=== PATIENT | female | born 1950 | race Caucasian/White ===

== ENCOUNTER 2023-05-15 11:36 | Inpatient (IN) | payer OTHER, BC ==
[2023-05-15 13:04] LABS: BASO % 0.1 % (0-2.0); HEMATOCRIT 32.7 % (32.4-45.2); HEMOGLOBIN 10.3 GM/dL (10.7-15.3); LYMPH % 3.9 % (8-40); MCH 31.2 pg (25.7-33.7); MCHC 31.4 g/dl (32.0-36.0); MEAN CELL VOLUME 99.4 fl (80-96); MEAN PLT VOLUME 9.5 fl (7.5-11.1); MONO % 7.6 % (3.8-10.2); NEUT % 88.4 % (42.8-82.8); PLATELET COUNT 430 10^3/uL (134-434); RBC 3.29 M/mm3 (3.60-5.2); RDW 15.3 % (11.6-15.6); WHITE BLOOD COUNT 12.5 K/mm3 (4.0-10.0)
[2023-05-15 13:05] LABS: EPI CELLS >36 /uL (0-25.1); HYALINE CASTS 8 /uL (0-3.1); PH,URINE 5.5 (5.0-8.0); URINE APPEARANCE CLOUDY; URINE BACTERIA 11 /uL (0-1359); URINE BILIRUBIN 1+ (NEGATIVE); URINE COLOR DK YELLOW; URINE GLUCOSE (UA) NEGATIVE (NEGATIVE); URINE KETONE NEGATIVE (NEGATIVE); URINE LEUK ESTERASE NEGATIVE (NEGATIVE); URINE NITRITE NEGATIVE (NEGATIVE); URINE PROTEIN 2+ (NEGATIVE); URINE RBC 7 /uL (0-23.9)
[2023-05-15 13:06] LABS: URINE WBC 62.2 /uL (0-25.8)
[2023-05-15 13:09] LABS: INR 1.88 (0.83-1.09); PROTHROMBIN TIME (PATIENT) 21.7 SEC (9.7-13.0)
[2023-05-15 13:12] LABS: ACTIVATED PTT 34.4 SECONDS (25.2-36.5)
[2023-05-15] MEDS ORDERED: CEFTRIAXONE 1,000 MG in DEXTROSE 5%-WATER - 50 ML IVPB ONE (13:21)
[2023-05-15 13:27] LABS: CHLORIDE 108 mmol/L (98-107); POTASSIUM 3.7 mmol/L (3.5-5.1); SODIUM 144 mmol/L (136-145)
[2023-05-15 13:29] LABS: CALCIUM 8.1 mg/dL (8.5-10.1)
[2023-05-15 13:30] LABS: ALBUMIN 1.9 g/dl (3.4-5.0); ANION GAP 9 mmol/L (4-13); BLOOD UREA NITROGEN 24.6 mg/dL (7-18); CO2 27 mmol/L (21-32); GLUCOSE,RANDOM 93 mg/dL (74-106)
[2023-05-15 13:32] LABS: ANISOCYTOSIS 0; MACROCYTOSIS 0
[2023-05-15 13:33] LABS: CREATININE 0.8 mg/dL (0.55-1.3); SGOT/AST 32 U/L (15-37); SGPT/ALT 15 U/L (13-61)
[2023-05-15] MEDS ORDERED: DEXAMETHASONE SOD PHOSPHATE 10 MG/1 ML VIAL IVPUSH ONE (13:33)
[2023-05-15] MEDS ORDERED: AZITHROMYCIN IVPB 500 MG in DEXTROSE 5%-WATER - 250 ML IVPB ONE (13:33)
[2023-05-15 13:34] LABS: BILIRUBIN,TOTAL 0.6 mg/dL (0.2-1)
[2023-05-15 13:35] LABS: TOT PROT 5.2 g/dl (6.4-8.2)
[2023-05-15 13:36] LABS: ALK PHOS 101 U/L (45-117)
[2023-05-15] MEDS ORDERED: CEFTRIAXONE 1 GM/50 ML BAG ONE (13:39)
[2023-05-15] MEDS ORDERED: DEXAMETHASONE SOD PHOSPHATE 10 MG/1 ML VIAL ONE (13:39)
[2023-05-15] MEDS ORDERED: AZITHROMYCIN IVPB 500 MG/250 ML BAG IVPB ONE (13:45)
[2023-05-15 14:34] LABS: ARTERIAL BLD GAS O2 SATURATION 99.7 % (95-98); ARTERIAL BLOOD GAS BASE EXCESS 0.6 mmol/L (-2-2); ARTERIAL BLOOD GAS PO2 299.8 mmHg (80-100); ARTERIAL BLOOD GAS pH 7.341 (7.350-7.450)
[2023-05-15 14:36] LABS: ALLENS TEST POSITIVE
[2023-05-15] MEDS ORDERED: REMDESIVIR 200 MG in SODIUM CHLORIDE 250 ML IVPB SCH (15:00)
[2023-05-15] MEDS ORDERED: REMDESIVIR 200 MG in SODIUM CHLORIDE 250 ML IVPB ONE (15:00)
[2023-05-15] MEDS: CHLORHEXIDINE GLUCONATE 4% CLEANSER FOR DECOLONIZATION TP SCH (21:27)
[2023-05-15] MEDS: MUPIROCIN 2% TOPICAL OINTMENT FOR DECOLONIZATION NS SCH (21:28)
[2023-05-15] MEDS ORDERED: SENNOSIDES 8.6MG TABLET (FP) PO SCH (22:00)
[2023-05-15] MEDS ORDERED: MONTELUKAST NA 10 MG TABLET PO SCH (22:00)
[2023-05-15] MEDS ORDERED: PATIENT'S OWN MEDICATION (NON-FORMULARY) (Sennosides [Senna] 8.6 MG Capsule) PO SCH (22:00)
[2023-05-15] MEDS ORDERED: URSODIOL 250 MG PO SCH (22:00)
[2023-05-15] MEDS ORDERED: ATORVASTATIN CA 40 MG TABLET (FP) PO SCH (22:00)
[2023-05-16] MEDS ORDERED: LEVOTHYROXINE NA 125 MCG TABLET (FP) PO SCH (07:00)
[2023-05-16 07:33] LABS: HEMATOCRIT 30.9 % (32.4-45.2); HEMOGLOBIN 10.2 GM/dL (10.7-15.3); MCH 32.8 pg (25.7-33.7); MCHC 32.9 g/dl (32.0-36.0); MEAN CELL VOLUME 99.6 fl (80-96); MEAN PLT VOLUME 9.3 fl (7.5-11.1); PLATELET COUNT 407 10^3/uL (134-434); RBC 3.11 M/mm3 (3.60-5.2); RDW 14.9 % (11.6-15.6); WHITE BLOOD COUNT 16.2 K/mm3 (4.0-10.0)
[2023-05-16 07:51] LABS: POTASSIUM 3.6 mmol/L (3.5-5.1)
[2023-05-16 07:56] LABS: CALCIUM 8.8 mg/dL (8.5-10.1); MAGNESIUM 1.9 mg/dL (1.8-2.4)
[2023-05-16 07:57] LABS: ALBUMIN 1.8 g/dl (3.4-5.0)
[2023-05-16 07:59] LABS: PHOSPHOROUS 2.7 mg/dL (2.5-4.9)
[2023-05-16 08:00] LABS: CREATININE 0.7 mg/dL (0.55-1.3)
[2023-05-16 08:01] LABS: TOT PROT 5.4 g/dl (6.4-8.2)
[2023-05-16 08:03] LABS: BILIRUBIN,TOTAL 0.5 mg/dL (0.2-1)
[2023-05-16 08:50] LABS: ARTERIAL BLD GAS O2 SATURATION 98.6 % (95-98); ARTERIAL BLOOD GAS BASE EXCESS 3.1 mmol/L (-2-2); ARTERIAL BLOOD GAS PO2 123.3 mmHg (80-100); ARTERIAL BLOOD GAS pH 7.448 (7.350-7.450)
[2023-05-16 09:26] LABS: ANISOCYTOSIS 1+; MACROCYTOSIS 1+
[2023-05-16] MEDS: MUPIROCIN 2% TOPICAL OINTMENT FOR DECOLONIZATION NS SCH ×2 (09:52→21:10)
[2023-05-16] MEDS: ENOXAPARIN NA (PORCINE) 40 MG/0.4 ML DISP.SYRIN SQ SCH (09:52)
[2023-05-16] MEDS: SENNOSIDES 8.8 MG/5 ML SYRUP PEG SCH ×2 (09:52→21:09)
[2023-05-16] MEDS ORDERED: PANTOPRAZOLE 40 MG TABLET PO SCH (10:00)
[2023-05-16] MEDS ORDERED: DEXAMETHASONE SOD PHOSPHATE 4 MG/1 ML VIAL IVPUSH SCH (10:00)
[2023-05-16] MEDS ORDERED: FLUoxetine HCL 20 MG CAPSULE PO SCH (10:00)
[2023-05-16] MEDS: DEXMEDETOMIDINE PREMIX 400 MCG/100 ML BAG IVPB SCH ×2 (10:26→22:22)
[2023-05-16] MEDS ORDERED: CEFTRIAXONE 1 GM in DEXTROSE 5%-WATER - 50 ML IVPB SCH (11:15)
[2023-05-16] MEDS ORDERED: BARICITINIB 2 MG TABLET GT SCH (11:15)
[2023-05-16] MEDS ORDERED: AZITHROMYCIN IVPB 500 MG in DEXTROSE 5%-WATER - 250 ML IVPB SCH (11:15)
[2023-05-16] MEDS: FLUoxetine HCL 20 MG/5 ML 120 BOTTLE PEG SCH (12:18)
[2023-05-16] MEDS: CEFTRIAXONE 1 GM in DEXTROSE 5%-WATER - 50 ML IVPB SCH (12:20)
[2023-05-16] MEDS: FAMOTIDINE 20 MG/2.5 ML ORAL LIQUID PEG SCH ×2 (12:43→22:23)
[2023-05-16] MEDS ORDERED: VANCOMYCIN/WATER 1250 MG 1,250 MG/250 ML BAG IVPB ONE (13:00)
[2023-05-16] MEDS ORDERED: DEXAMETHASONE SOD PHOSPHATE 4 MG/1 ML VIAL IVPUSH ONE (13:14)
[2023-05-16] MEDS: AZITHROMYCIN IVPB 500 MG/250 ML BAG IVPB SCH (13:19)
[2023-05-16] MEDS ORDERED: BARICITINIB 1 MG/10 ML LIQUID GT SCH (14:00)
[2023-05-16] MEDS: REMDESIVIR 100 MG in SODIUM CHLORIDE 270 ML IVPB SCH (16:40)
[2023-05-16] MEDS: MONTELUKAST NA 10 MG TABLET PEG SCH (21:09)
[2023-05-16] MEDS: ATORVASTATIN CA 40 MG TABLET (FP) PEG SCH (21:09)
[2023-05-16] MEDS: CHLORHEXIDINE GLUCONATE 4% CLEANSER FOR DECOLONIZATION TP SCH (21:10)
[2023-05-16] MEDS: ACETAMINOPHEN 650 MG/20.3 ML ORAL SOLUTION (CUPS) PEG PRN (22:24)
[2023-05-17] MEDS: LEVOTHYROXINE NA 125 MCG TABLET (FP) PEG SCH (06:56)
[2023-05-17 08:13] LABS: HEMATOCRIT 31.4 % (32.4-45.2); HEMOGLOBIN 10.4 GM/dL (10.7-15.3); MCH 32.7 pg (25.7-33.7); MEAN CELL VOLUME 99.2 fl (80-96); MEAN PLT VOLUME 9.6 fl (7.5-11.1); PLATELET COUNT 421 10^3/uL (134-434); RBC 3.17 M/mm3 (3.60-5.2); WHITE BLOOD COUNT 23.3 K/mm3 (4.0-10.0)
[2023-05-17 08:31] LABS: POTASSIUM 3.7 mmol/L (3.5-5.1)
[2023-05-17 08:38] LABS: CALCIUM 9.4 mg/dL (8.5-10.1)
[2023-05-17 08:40] LABS: BLOOD UREA NITROGEN 33.4 mg/dL (7-18); MAGNESIUM 2.3 mg/dL (1.8-2.4)
[2023-05-17 08:42] LABS: CREATININE 0.8 mg/dL (0.55-1.3)
[2023-05-17 08:43] LABS: BILIRUBIN,DIRECT 0.3 mg/dL (0.0-0.2); PHOSPHOROUS 2.5 mg/dL (2.5-4.9)
[2023-05-17 08:44] LABS: BILIRUBIN,TOTAL 0.6 mg/dL (0.2-1); TOT PROT 5.7 g/dl (6.4-8.2)
[2023-05-17] MEDS ORDERED: VANCOMYCIN/WATER FOR INJ (PEG) 1,000 MG/200 ML BAG IVPB SCH (10:00)
[2023-05-17] MEDS: CEFTRIAXONE 1 GM in DEXTROSE 5%-WATER - 50 ML IVPB SCH (10:11)
[2023-05-17] MEDS: DEXAMETHASONE SOD PHOSPHATE 4 MG/1 ML VIAL IVPUSH SCH (10:12)
[2023-05-17] MEDS: AZITHROMYCIN IVPB 500 MG/250 ML BAG IVPB SCH (10:13)
[2023-05-17] MEDS: ENOXAPARIN NA (PORCINE) 40 MG/0.4 ML DISP.SYRIN SQ SCH (10:13)
[2023-05-17] MEDS: FLUoxetine HCL 20 MG/5 ML 120 BOTTLE PEG SCH (10:20)
[2023-05-17] MEDS: FAMOTIDINE 20 MG/2.5 ML ORAL LIQUID PEG SCH ×2 (10:20→21:15)
[2023-05-17] MEDS: SENNOSIDES 8.8 MG/5 ML SYRUP PEG SCH ×2 (12:43→21:16)
[2023-05-17] MEDS: DEXMEDETOMIDINE PREMIX 400 MCG/100 ML BAG IVPB SCH (12:43)
[2023-05-17] MEDS ORDERED: BARICITINIB 1 MG/10 ML LIQUID GT SCH (14:00)
[2023-05-17] MEDS: REMDESIVIR 100 MG in SODIUM CHLORIDE 270 ML IVPB SCH (14:24)
[2023-05-17] MEDS: ATORVASTATIN CA 40 MG TABLET (FP) PEG SCH (21:16)
[2023-05-17] MEDS: MUPIROCIN 2% TOPICAL OINTMENT FOR DECOLONIZATION NS SCH (21:16)
[2023-05-17] MEDS: MONTELUKAST NA 10 MG TABLET PEG SCH (21:16)
[2023-05-17] MEDS: VANCOMYCIN/WATER 1250 MG 1,250 MG/250 ML BAG IVPB SCH (21:16)
[2023-05-17] MEDS: CHLORHEXIDINE GLUCONATE 4% CLEANSER FOR DECOLONIZATION TP SCH (21:16)
[2023-05-18] MEDS: DEXMEDETOMIDINE PREMIX 400 MCG/100 ML BAG IVPB SCH ×2 (06:02→21:59)
[2023-05-18] MEDS: LEVOTHYROXINE NA 125 MCG TABLET (FP) PEG SCH (06:02)
[2023-05-18 06:33] LABS: HEMATOCRIT 32.1 % (32.4-45.2); HEMOGLOBIN 10.6 GM/dL (10.7-15.3); MCH 32.8 pg (25.7-33.7); MEAN CELL VOLUME 99.4 fl (80-96); PLATELET COUNT 376 10^3/uL (134-434); RBC 3.23 M/mm3 (3.60-5.2); RDW 14.6 % (11.6-15.6); WHITE BLOOD COUNT 23.7 K/mm3 (4.0-10.0)
[2023-05-18 06:52] LABS: POTASSIUM 3.6 mmol/L (3.5-5.1)
[2023-05-18 06:53] LABS: CALCIUM 8.6 mg/dL (8.5-10.1)
[2023-05-18 06:55] LABS: ALBUMIN 1.8 g/dl (3.4-5.0); MAGNESIUM 2.1 mg/dL (1.8-2.4)
[2023-05-18 06:58] LABS: CREATININE 0.6 mg/dL (0.55-1.3); PHOSPHOROUS 2.5 mg/dL (2.5-4.9)
[2023-05-18 06:59] LABS: BILIRUBIN,TOTAL 0.4 mg/dL (0.2-1); TOT PROT 5.2 g/dl (6.4-8.2)
[2023-05-18] MEDS: MUPIROCIN 2% TOPICAL OINTMENT FOR DECOLONIZATION NS SCH ×3 (08:15→21:11)
[2023-05-18] MEDS: CEFTRIAXONE 1 GM in DEXTROSE 5%-WATER - 50 ML IVPB SCH (09:52)
[2023-05-18] MEDS: SENNOSIDES 8.8 MG/5 ML SYRUP PEG SCH ×2 (09:55→21:09)
[2023-05-18] MEDS: AMINO ACIDS/PROTEIN HYDROLYS 30 ML LIQUID.PKT GT SCH (09:55)
[2023-05-18] MEDS: ENOXAPARIN NA (PORCINE) 40 MG/0.4 ML DISP.SYRIN SQ SCH (09:56)
[2023-05-18] MEDS: QUEtiapine FUMARATE 25 MG TABLET PO SCH ×2 (09:57→21:10)
[2023-05-18] MEDS: DEXAMETHASONE SOD PHOSPHATE 4 MG/1 ML VIAL IVPUSH SCH ×2 (09:57→16:06)
[2023-05-18] MEDS: MULTIVIT-MINERALS ORAL LIQUID GT SCH (10:02)
[2023-05-18] MEDS: FLUoxetine HCL 20 MG/5 ML 120 BOTTLE PEG SCH (10:02)
[2023-05-18] MEDS: FAMOTIDINE 20 MG/2.5 ML ORAL LIQUID PEG SCH ×2 (10:03→21:32)
[2023-05-18] MEDS: VANCOMYCIN/WATER 1250 MG 1,250 MG/250 ML BAG IVPB SCH (11:34)
[2023-05-18] MEDS: AZITHROMYCIN IVPB 500 MG/250 ML BAG IVPB SCH (11:42)
[2023-05-18 13:10] VITALS: BMI 29.5
[2023-05-18] MEDS ORDERED: SODIUM CHLORIDE IVPB SCH (15:15)
[2023-05-18] MEDS ORDERED: DAPTOMYCIN IVPB SCH (15:15)
[2023-05-18] MEDS ORDERED: CEFTAROLINE FOSAMIL ACETATE 600 MG in DEXTROSE 5%-WATER - 100 ML IVPB SCH (16:00)
[2023-05-18] MEDS: REMDESIVIR 100 MG in SODIUM CHLORIDE 270 ML IVPB SCH (16:43)
[2023-05-18] MEDS: CEFTAROLINE FOSAMIL ACETATE 600 MG in DEXTROSE 5%-WATER - 250 ML IVPB SCH (18:50)
[2023-05-18] MEDS: MONTELUKAST NA 10 MG TABLET PEG SCH (21:09)
[2023-05-18] MEDS: CHLORHEXIDINE GLUCONATE 4% CLEANSER FOR DECOLONIZATION TP SCH (21:11)
[2023-05-19] MEDS: CEFTAROLINE FOSAMIL ACETATE 600 MG in DEXTROSE 5%-WATER - 250 ML IVPB SCH ×3 (02:35→18:38)
[2023-05-19] MEDS: LEVOTHYROXINE NA 125 MCG TABLET (FP) PEG SCH (06:18)
[2023-05-19 07:58] LABS: HEMATOCRIT 35.5 % (32.4-45.2); HEMOGLOBIN 11.6 GM/dL (10.7-15.3); MCH 31.8 pg (25.7-33.7); MCHC 32.7 g/dl (32.0-36.0); MEAN CELL VOLUME 97.2 fl (80-96); MEAN PLT VOLUME 10.4 fl (7.5-11.1); PLATELET COUNT 375 10^3/uL (134-434); RBC 3.66 M/mm3 (3.60-5.2); RDW 14.8 % (11.6-15.6); WHITE BLOOD COUNT 22.1 K/mm3 (4.0-10.0)
[2023-05-19 08:34] LABS: POTASSIUM 3.2 mmol/L (3.5-5.1)
[2023-05-19 08:36] LABS: CALCIUM 8.4 mg/dL (8.5-10.1)
[2023-05-19 08:37] LABS: ALBUMIN 1.9 g/dl (3.4-5.0); BLOOD UREA NITROGEN 20.8 mg/dL (7-18); MAGNESIUM 2.1 mg/dL (1.8-2.4)
[2023-05-19 08:40] LABS: CREATININE 0.5 mg/dL (0.55-1.3); PHOSPHOROUS 2.3 mg/dL (2.5-4.9)
[2023-05-19 08:42] LABS: BILIRUBIN,TOTAL 0.7 mg/dL (0.2-1); TOT PROT 5.5 g/dl (6.4-8.2)
[2023-05-19] MEDS ORDERED: POTASSIUM CHLORIDE ORAL LIQUID 20 MEQ/15 ML GT SCH (10:00)
[2023-05-19] MEDS: AMINO ACIDS/PROTEIN HYDROLYS 30 ML LIQUID.PKT GT SCH (10:00)
[2023-05-19] MEDS: SENNOSIDES 8.8 MG/5 ML SYRUP PEG SCH ×2 (10:00→21:59)
[2023-05-19] MEDS: MUPIROCIN 2% TOPICAL OINTMENT FOR DECOLONIZATION NS SCH ×2 (11:01→21:57)
[2023-05-19] MEDS: MULTIVIT-MINERALS ORAL LIQUID GT SCH (11:01)
[2023-05-19] MEDS: DEXMEDETOMIDINE PREMIX 400 MCG/100 ML BAG IVPB SCH (11:02)
[2023-05-19] MEDS: ENOXAPARIN NA (PORCINE) 40 MG/0.4 ML DISP.SYRIN SQ SCH (11:02)
[2023-05-19] MEDS: FLUoxetine HCL 20 MG/5 ML 120 BOTTLE PEG SCH (11:02)
[2023-05-19] MEDS: QUEtiapine FUMARATE 25 MG TABLET PO SCH ×2 (11:02→21:59)
[2023-05-19] MEDS: DEXAMETHASONE SOD PHOSPHATE 4 MG/1 ML VIAL IVPUSH SCH (11:02)
[2023-05-19] MEDS: FAMOTIDINE 20 MG/2.5 ML ORAL LIQUID PEG SCH ×2 (11:15→21:58)
[2023-05-19] MEDS: POTASSIUM CHLORIDE ORAL LIQUID 20 MEQ/15 ML GT SCH ×2 (13:55→21:59)
[2023-05-19] MEDS: DAPTOMYCIN IVPB SCH (16:55)
[2023-05-19] MEDS: REMDESIVIR 100 MG in SODIUM CHLORIDE 270 ML IVPB SCH (16:55)
[2023-05-19] MEDS: SODIUM CHLORIDE IVPB SCH (16:55)
[2023-05-19 21:28] LABS: POTASSIUM 3.5 mmol/L (3.5-5.1)
[2023-05-19 21:29] LABS: CALCIUM 8.6 mg/dL (8.5-10.1)
[2023-05-19 21:30] LABS: MAGNESIUM 2.1 mg/dL (1.8-2.4)
[2023-05-19 21:34] LABS: CREATININE 0.6 mg/dL (0.55-1.3); PHOSPHOROUS 2.5 mg/dL (2.5-4.9)
[2023-05-19] MEDS: CHLORHEXIDINE GLUCONATE 4% CLEANSER FOR DECOLONIZATION TP SCH (21:58)
[2023-05-19] MEDS: MONTELUKAST NA 10 MG TABLET PEG SCH (21:59)
[2023-05-19] MEDS ORDERED: KCL 10 MEQ IVPB 10 MEQ/100 ML INFUS.BAG IVPB SCH (22:00)
[2023-05-20] MEDS: CEFTAROLINE FOSAMIL ACETATE 600 MG in DEXTROSE 5%-WATER - 250 ML IVPB SCH ×3 (01:31→17:03)
[2023-05-20] MEDS: LEVOTHYROXINE NA 125 MCG TABLET (FP) PEG SCH (06:03)
[2023-05-20 08:17] LABS: HEMATOCRIT 33.7 % (32.4-45.2); HEMOGLOBIN 10.9 GM/dL (10.7-15.3); MCH 31.7 pg (25.7-33.7); MCHC 32.2 g/dl (32.0-36.0); MEAN CELL VOLUME 98.3 fl (80-96); MEAN PLT VOLUME 10.3 fl (7.5-11.1); PLATELET COUNT 376 10^3/uL (134-434); RBC 3.43 M/mm3 (3.60-5.2); RDW 14.8 % (11.6-15.6)
[2023-05-20 08:39] LABS: CALCIUM 8.2 mg/dL (8.5-10.1)
[2023-05-20 08:40] LABS: BLOOD UREA NITROGEN 26.1 mg/dL (7-18)
[2023-05-20 08:43] LABS: CREATININE 0.6 mg/dL (0.55-1.3); PHOSPHOROUS 2.1 mg/dL (2.5-4.9)
[2023-05-20 08:44] LABS: TOT PROT 5.3 g/dl (6.4-8.2)
[2023-05-20 08:45] LABS: BILIRUBIN,TOTAL 0.9 mg/dL (0.2-1)
[2023-05-20] MEDS ORDERED: NAPH,MB-DB/K PH,MBDB POWDER PACKET PO ONE ×2 (09:08→11:15)
[2023-05-20] MEDS: AMINO ACIDS/PROTEIN HYDROLYS 30 ML LIQUID.PKT GT SCH (09:24)
[2023-05-20] MEDS: ACETAMINOPHEN 650 MG/20.3 ML ORAL SOLUTION (CUPS) PEG PRN (09:31)
[2023-05-20] MEDS: ENOXAPARIN NA (PORCINE) 40 MG/0.4 ML DISP.SYRIN SQ SCH (09:31)
[2023-05-20] MEDS: FAMOTIDINE 20 MG/2.5 ML ORAL LIQUID PEG SCH ×2 (09:34→22:22)
[2023-05-20] MEDS: QUEtiapine FUMARATE 25 MG TABLET PO SCH ×2 (09:34→22:23)
[2023-05-20] MEDS: FLUoxetine HCL 20 MG/5 ML 120 BOTTLE PEG SCH (09:34)
[2023-05-20] MEDS: DEXAMETHASONE SOD PHOSPHATE 4 MG/1 ML VIAL IVPUSH SCH (09:34)
[2023-05-20] MEDS: MULTIVIT-MINERALS ORAL LIQUID GT SCH (09:35)
[2023-05-20] MEDS: MUPIROCIN 2% TOPICAL OINTMENT FOR DECOLONIZATION NS SCH (09:58)
[2023-05-20] MEDS: REMDESIVIR 100 MG in SODIUM CHLORIDE 250 ML IVPB SCH (14:00)
[2023-05-20] MEDS: SENNOSIDES 8.8 MG/5 ML SYRUP PEG SCH ×2 (15:45→22:22)
[2023-05-20] MEDS: SODIUM CHLORIDE IVPB SCH (17:03)
[2023-05-20] MEDS: DAPTOMYCIN IVPB SCH (17:03)
[2023-05-20] MEDS: MONTELUKAST NA 10 MG TABLET PEG SCH (22:22)
[2023-05-20] MEDS: CHLORHEXIDINE GLUCONATE 4% CLEANSER FOR DECOLONIZATION TP SCH (22:22)
[2023-05-21] MEDS: CEFTAROLINE FOSAMIL ACETATE 600 MG in DEXTROSE 5%-WATER - 250 ML IVPB SCH ×3 (01:13→17:23)
[2023-05-21] MEDS: LEVOTHYROXINE NA 125 MCG TABLET (FP) PEG SCH (06:01)
[2023-05-21 08:07] LABS: POTASSIUM 4.1 mmol/L (3.5-5.1)
[2023-05-21 08:09] LABS: CALCIUM 8.1 mg/dL (8.5-10.1)
[2023-05-21 08:10] LABS: ALBUMIN 1.9 g/dl (3.4-5.0); MAGNESIUM 1.9 mg/dL (1.8-2.4)
[2023-05-21 08:13] LABS: CREATININE 0.6 mg/dL (0.55-1.3); PHOSPHOROUS 1.9 mg/dL (2.5-4.9)
[2023-05-21 08:14] LABS: BILIRUBIN,TOTAL 0.8 mg/dL (0.2-1); TOT PROT 5.2 g/dl (6.4-8.2)
[2023-05-21 08:33] LABS: HEMATOCRIT 32.7 % (32.4-45.2); HEMOGLOBIN 10.6 GM/dL (10.7-15.3); MCH 32.4 pg (25.7-33.7); MCHC 32.5 g/dl (32.0-36.0); MEAN CELL VOLUME 99.9 fl (80-96); MEAN PLT VOLUME 10.4 fl (7.5-11.1); PLATELET COUNT 364 10^3/uL (134-434); RBC 3.27 M/mm3 (3.60-5.2); RDW 14.7 % (11.6-15.6)
[2023-05-21] MEDS ORDERED: NAPH,MB-DB/K PH,MBDB POWDER PACKET PO ONE (08:45)
[2023-05-21] MEDS: AMINO ACIDS/PROTEIN HYDROLYS 30 ML LIQUID.PKT GT SCH (08:47)
[2023-05-21 09:09] LABS: WHITE BLOOD COUNT 31.9 K/mm3 (4.0-10.0)
[2023-05-21] MEDS: REMDESIVIR 100 MG in SODIUM CHLORIDE 250 ML IVPB SCH (09:15)
[2023-05-21] MEDS: SENNOSIDES 8.8 MG/5 ML SYRUP PEG SCH ×2 (09:18→22:01)
[2023-05-21] MEDS: QUEtiapine FUMARATE 25 MG TABLET PO SCH ×2 (09:19→22:09)
[2023-05-21] MEDS: DEXAMETHASONE SOD PHOSPHATE 4 MG/1 ML VIAL IVPUSH SCH (09:19)
[2023-05-21] MEDS: MULTIVIT-MINERALS ORAL LIQUID GT SCH (09:20)
[2023-05-21] MEDS: FLUoxetine HCL 20 MG/5 ML 120 BOTTLE PEG SCH (09:20)
[2023-05-21] MEDS: ENOXAPARIN NA (PORCINE) 40 MG/0.4 ML DISP.SYRIN SQ SCH (09:21)
[2023-05-21] MEDS: FAMOTIDINE 20 MG/2.5 ML ORAL LIQUID PEG SCH ×2 (09:25→22:10)
[2023-05-21] MEDS ORDERED: COLLAGENASE CLOSTRIDIUM HIST. 30 GRAMS TUBE TP SCH (10:00)
[2023-05-21] MEDS: ACETAMINOPHEN 650 MG/20.3 ML ORAL SOLUTION (CUPS) PEG PRN (11:00)
[2023-05-21] MEDS ORDERED: DEXAMETHASONE SOD PHOSPHATE 4 MG/1 ML VIAL IVPUSH SCH (11:20)
[2023-05-21] MEDS: SODIUM CHLORIDE IVPB SCH (17:23)
[2023-05-21] MEDS: DAPTOMYCIN IVPB SCH (17:23)
[2023-05-21] MEDS: FUROSEMIDE 40 MG/4 ML INJECTABLE VIAL IVPUSH SCH (17:25)
[2023-05-21] MEDS: SUCRALFATE 1 GM TABLET (FP) PO SCH ×2 (18:26→22:09)
[2023-05-21] MEDS: CHLORHEXIDINE GLUCONATE 4% CLEANSER FOR DECOLONIZATION TP SCH (22:00)
[2023-05-21] MEDS: METOCLOPRAMIDE HCL 10 MG TABLET (FP) PO SCH (22:09)
[2023-05-21] MEDS: MONTELUKAST NA 10 MG TABLET PEG SCH (22:09)
[2023-05-22] MEDS: CEFTAROLINE FOSAMIL ACETATE 600 MG in DEXTROSE 5%-WATER - 250 ML IVPB SCH ×3 (01:49→18:16)
[2023-05-22] MEDS ORDERED: PATIENT'S OWN MEDICATION (NON-FORMULARY) (Ursodiol [Ursodiol] 250 MG) PO SCH (06:00)
[2023-05-22] MEDS: SUCRALFATE 1 GM TABLET (FP) PO SCH ×3 (06:08→22:01)
[2023-05-22] MEDS: LEVOTHYROXINE NA 125 MCG TABLET (FP) PEG SCH (06:08)
[2023-05-22] MEDS: FUROSEMIDE 40 MG/4 ML INJECTABLE VIAL IVPUSH SCH ×2 (06:09→15:57)
[2023-05-22] MEDS: METOCLOPRAMIDE HCL 10 MG TABLET (FP) PO SCH ×3 (06:09→22:02)
[2023-05-22 07:18] LABS: HEMATOCRIT 33.2 % (32.4-45.2); HEMOGLOBIN 10.9 GM/dL (10.7-15.3); MCH 32.3 pg (25.7-33.7); MCHC 32.7 g/dl (32.0-36.0); MEAN CELL VOLUME 98.7 fl (80-96); MEAN PLT VOLUME 10.4 fl (7.5-11.1); PLATELET COUNT 370 10^3/uL (134-434); RBC 3.37 M/mm3 (3.60-5.2); RDW 14.4 % (11.6-15.6)
[2023-05-22 07:33] LABS: WHITE BLOOD COUNT 33.2 K/mm3 (4.0-10.0)
[2023-05-22 07:41] LABS: POTASSIUM 4.2 mmol/L (3.5-5.1)
[2023-05-22 07:45] LABS: ALBUMIN 2.2 g/dl (3.4-5.0); BLOOD UREA NITROGEN 23.6 mg/dL (7-18); CALCIUM 8.3 mg/dL (8.5-10.1)
[2023-05-22 07:48] LABS: CREATININE 0.6 mg/dL (0.55-1.3)
[2023-05-22 07:50] LABS: BILIRUBIN,TOTAL 0.9 mg/dL (0.2-1); TOT PROT 5.8 g/dl (6.4-8.2)
[2023-05-22] MEDS: AMINO ACIDS/PROTEIN HYDROLYS 30 ML LIQUID.PKT GT SCH (08:06)
[2023-05-22] MEDS ORDERED: COLLAGENASE CLOSTRIDIUM HIST. 30 GRAMS TUBE TP SCH (10:00)
[2023-05-22] MEDS: SENNOSIDES 8.8 MG/5 ML SYRUP PEG SCH ×2 (11:03→22:02)
[2023-05-22] MEDS: DEXAMETHASONE SOD PHOSPHATE 4 MG/1 ML VIAL IVPUSH SCH (11:03)
[2023-05-22] MEDS: ENOXAPARIN NA (PORCINE) 40 MG/0.4 ML DISP.SYRIN SQ SCH (11:03)
[2023-05-22] MEDS: QUEtiapine FUMARATE 25 MG TABLET PEG SCH (11:04)
[2023-05-22] MEDS: FAMOTIDINE 20 MG/2.5 ML ORAL LIQUID PEG SCH ×2 (11:04→22:03)
[2023-05-22] MEDS: FLUoxetine HCL 20 MG/5 ML 120 BOTTLE PEG SCH (11:04)
[2023-05-22] MEDS: REMDESIVIR 100 MG in SODIUM CHLORIDE 250 ML IVPB SCH (11:05)
[2023-05-22] MEDS: MULTIVIT-MINERALS ORAL LIQUID GT SCH (11:06)
[2023-05-22] MEDS: DAPTOMYCIN IVPB SCH (18:16)
[2023-05-22] MEDS: SODIUM CHLORIDE IVPB SCH (18:16)
[2023-05-22] MEDS ORDERED: CHLORHEXIDINE GLUCONATE 4% CLEANSER FOR DECOLONIZATION TP SCH (22:00)
[2023-05-22] MEDS ORDERED: QUEtiapine FUMARATE 25 MG TABLET PEG SCH (22:00)
[2023-05-22] MEDS: MONTELUKAST NA 10 MG TABLET PEG SCH (22:02)
[2023-05-23] MEDS: CEFTAROLINE FOSAMIL ACETATE 600 MG in DEXTROSE 5%-WATER - 250 ML IVPB SCH ×3 (01:30→18:40)
[2023-05-23] MEDS: METOCLOPRAMIDE HCL 10 MG TABLET (FP) PO SCH ×3 (05:57→22:10)
[2023-05-23] MEDS: SUCRALFATE 1 GM TABLET (FP) PO SCH ×3 (05:59→22:10)
[2023-05-23] MEDS: FUROSEMIDE 40 MG/4 ML INJECTABLE VIAL IVPUSH SCH ×2 (05:59→13:20)
[2023-05-23] MEDS: LEVOTHYROXINE NA 125 MCG TABLET (FP) PEG SCH (06:00)
[2023-05-23 08:13] LABS: HEMATOCRIT 32.1 % (32.4-45.2); HEMOGLOBIN 10.4 GM/dL (10.7-15.3); MCH 31.8 pg (25.7-33.7); MCHC 32.4 g/dl (32.0-36.0); MEAN PLT VOLUME 10.2 fl (7.5-11.1); PLATELET COUNT 394 10^3/uL (134-434); RBC 3.27 M/mm3 (3.60-5.2); RDW 14.3 % (11.6-15.6); WHITE BLOOD COUNT 26.8 K/mm3 (4.0-10.0)
[2023-05-23 09:21] LABS: POTASSIUM 3.8 mmol/L (3.5-5.1)
[2023-05-23 09:28] LABS: ALBUMIN 2.2 g/dl (3.4-5.0); BLOOD UREA NITROGEN 28.1 mg/dL (7-18)
[2023-05-23 09:29] LABS: CALCIUM 8.4 mg/dL (8.5-10.1); TOT PROT 5.8 g/dl (6.4-8.2)
[2023-05-23 09:30] LABS: MAGNESIUM 2.1 mg/dL (1.8-2.4)
[2023-05-23 09:31] LABS: CREATININE 0.7 mg/dL (0.55-1.3); PHOSPHOROUS 3.2 mg/dL (2.5-4.9)
[2023-05-23 09:34] LABS: ANISOCYTOSIS 1+; MACROCYTOSIS 0; TARGET CELLS 1+
[2023-05-23] MEDS: SENNOSIDES 8.8 MG/5 ML SYRUP PEG SCH (09:59)
[2023-05-23] MEDS: AMINO ACIDS/PROTEIN HYDROLYS 30 ML LIQUID.PKT GT SCH (09:59)
[2023-05-23] MEDS: MULTIVIT-MINERALS ORAL LIQUID GT SCH (10:00)
[2023-05-23] MEDS: DEXAMETHASONE SOD PHOSPHATE 4 MG/1 ML VIAL IVPUSH SCH (10:00)
[2023-05-23] MEDS: ENOXAPARIN NA (PORCINE) 40 MG/0.4 ML DISP.SYRIN SQ SCH (10:01)
[2023-05-23] MEDS: FLUoxetine HCL 20 MG/5 ML 120 BOTTLE PEG SCH (10:02)
[2023-05-23] MEDS: FAMOTIDINE 20 MG/2.5 ML ORAL LIQUID PEG SCH ×2 (10:02→22:10)
[2023-05-23] MEDS: QUEtiapine FUMARATE 25 MG TABLET PEG SCH (10:05)
[2023-05-23] MEDS: REMDESIVIR 100 MG in SODIUM CHLORIDE 250 ML IVPB SCH (10:07)
[2023-05-23] MEDS: BACITRACIN ZINC 15 GM TUBE TOPICAL OINTMENT TP SCH (13:21)
[2023-05-23] MEDS ORDERED: SENNOSIDES 8.8 MG/5 ML SYRUP PEG PRN (13:49)
[2023-05-23] MEDS: DAPTOMYCIN IVPB SCH (16:47)
[2023-05-23] MEDS: SODIUM CHLORIDE IVPB SCH (16:47)
[2023-05-23] MEDS ORDERED: CODEINE SO4 30 MG TABLET PO PRN (18:36)
[2023-05-23] MEDS: ACETAMINOPHEN 650 MG/20.3 ML ORAL SOLUTION (CUPS) PEG PRN (18:43)
[2023-05-23] MEDS: BENZONATATE 200 MG CAPSULE PO SCH (22:09)
[2023-05-23] MEDS: MONTELUKAST NA 10 MG TABLET PEG SCH (22:09)
[2023-05-24] MEDS: CEFTAROLINE FOSAMIL ACETATE 600 MG in DEXTROSE 5%-WATER - 250 ML IVPB SCH ×3 (01:46→17:17)
[2023-05-24] MEDS: METOCLOPRAMIDE HCL 10 MG TABLET (FP) PO SCH ×3 (07:04→22:05)
[2023-05-24] MEDS: LEVOTHYROXINE NA 125 MCG TABLET (FP) PEG SCH (07:05)
[2023-05-24] MEDS: SUCRALFATE 1 GM TABLET (FP) PO SCH ×3 (07:05→22:04)
[2023-05-24] MEDS: AMINO ACIDS/PROTEIN HYDROLYS 30 ML LIQUID.PKT GT SCH (09:03)
[2023-05-24 09:10] LABS: HEMATOCRIT 32.4 % (32.4-45.2); HEMOGLOBIN 10.6 GM/dL (10.7-15.3); MCH 32.2 pg (25.7-33.7); MCHC 32.8 g/dl (32.0-36.0); MEAN CELL VOLUME 98.3 fl (80-96); MEAN PLT VOLUME 10.1 fl (7.5-11.1); PLATELET COUNT 441 10^3/uL (134-434); RDW 14.4 % (11.6-15.6); WHITE BLOOD COUNT 24.3 K/mm3 (4.0-10.0)
[2023-05-24 09:17] LABS: POTASSIUM 3.5 mmol/L (3.5-5.1)
[2023-05-24 09:19] LABS: CALCIUM 8.4 mg/dL (8.5-10.1)
[2023-05-24 09:20] LABS: MAGNESIUM 2.2 mg/dL (1.8-2.4)
[2023-05-24 09:22] LABS: ALBUMIN 2.3 g/dl (3.4-5.0); BLOOD UREA NITROGEN 31.3 mg/dL (7-18)
[2023-05-24 09:23] LABS: PHOSPHOROUS 2.6 mg/dL (2.5-4.9)
[2023-05-24 09:24] LABS: CREATININE 0.7 mg/dL (0.55-1.3); TOT PROT 5.9 g/dl (6.4-8.2)
[2023-05-24] MEDS: FUROSEMIDE 40 MG/4 ML INJECTABLE VIAL IVPUSH SCH (09:24)
[2023-05-24] MEDS: DEXAMETHASONE SOD PHOSPHATE 4 MG/1 ML VIAL IVPUSH SCH (09:24)
[2023-05-24 09:25] LABS: BILIRUBIN,TOTAL 0.7 mg/dL (0.2-1)
[2023-05-24] MEDS: ENOXAPARIN NA (PORCINE) 40 MG/0.4 ML DISP.SYRIN SQ SCH (09:25)
[2023-05-24] MEDS: ACETAMINOPHEN 650 MG/20.3 ML ORAL SOLUTION (CUPS) PEG PRN ×2 (09:25→15:07)
[2023-05-24] MEDS: MULTIVIT-MINERALS ORAL LIQUID GT SCH (09:26)
[2023-05-24] MEDS: BENZONATATE 200 MG CAPSULE PO SCH ×2 (09:26→22:03)
[2023-05-24] MEDS: FAMOTIDINE 20 MG/2.5 ML ORAL LIQUID PEG SCH ×2 (09:27→22:03)
[2023-05-24] MEDS: FLUoxetine HCL 20 MG/5 ML 120 BOTTLE PEG SCH (09:27)
[2023-05-24 09:52] LABS: ANISOCYTOSIS 1+; MACROCYTOSIS 0; TARGET CELLS 1+
[2023-05-24] MEDS: BACITRACIN ZINC 15 GM TUBE TOPICAL OINTMENT TP SCH (11:13)
[2023-05-24] MEDS: REMDESIVIR 100 MG in SODIUM CHLORIDE 250 ML IVPB SCH (11:36)
[2023-05-24] MEDS: DAPTOMYCIN IVPB SCH (18:03)
[2023-05-24] MEDS: SODIUM CHLORIDE IVPB SCH (18:03)
[2023-05-24] MEDS: ATORVASTATIN CA 40 MG TABLET (FP) PEG SCH (22:05)
[2023-05-24] MEDS: MONTELUKAST NA 10 MG TABLET PEG SCH (22:05)
[2023-05-25] MEDS: CEFTAROLINE FOSAMIL ACETATE 600 MG in DEXTROSE 5%-WATER - 250 ML IVPB SCH ×3 (01:28→17:43)
[2023-05-25] MEDS: METOCLOPRAMIDE HCL 10 MG TABLET (FP) PO SCH ×3 (06:30→21:18)
[2023-05-25] MEDS: SUCRALFATE 1 GM TABLET (FP) PO SCH ×3 (06:30→21:17)
[2023-05-25] MEDS: LEVOTHYROXINE NA 125 MCG TABLET (FP) PEG SCH (06:30)
[2023-05-25 08:12] LABS: HEMATOCRIT 31.8 % (32.4-45.2); MCH 31.3 pg (25.7-33.7); MCHC 31.5 g/dl (32.0-36.0); MEAN CELL VOLUME 99.1 fl (80-96); PLATELET COUNT 422 10^3/uL (134-434); RDW 14.6 % (11.6-15.6); WHITE BLOOD COUNT 25.9 K/mm3 (4.0-10.0)
[2023-05-25 08:32] LABS: POTASSIUM 3.5 mmol/L (3.5-5.1)
[2023-05-25 08:34] LABS: BLOOD UREA NITROGEN 31.8 mg/dL (7-18); CALCIUM 8.8 mg/dL (8.5-10.1)
[2023-05-25 08:35] LABS: ALBUMIN 2.4 g/dl (3.4-5.0); MAGNESIUM 2.2 mg/dL (1.8-2.4)
[2023-05-25 08:38] LABS: CREATININE 0.8 mg/dL (0.55-1.3); PHOSPHOROUS 2.9 mg/dL (2.5-4.9)
[2023-05-25 08:39] LABS: TOT PROT 5.7 g/dl (6.4-8.2)
[2023-05-25 08:52] LABS: BILIRUBIN,TOTAL 0.6 mg/dL (0.2-1)
[2023-05-25] MEDS: AMINO ACIDS/PROTEIN HYDROLYS 30 ML LIQUID.PKT GT SCH (09:42)
[2023-05-25 09:56] LABS: ANISOCYTOSIS 1+; MACROCYTOSIS 1+; OVALOCYTE 2+
[2023-05-25] MEDS ORDERED: ONDANSETRON *ODT* 4 MG TABLET SL ONE (10:15)
[2023-05-25] MEDS: FUROSEMIDE 40 MG/4 ML INJECTABLE VIAL IVPUSH SCH (10:42)
[2023-05-25] MEDS: ENOXAPARIN NA (PORCINE) 40 MG/0.4 ML DISP.SYRIN SQ SCH (10:42)
[2023-05-25] MEDS: BACITRACIN ZINC 15 GM TUBE TOPICAL OINTMENT TP SCH (10:42)
[2023-05-25] MEDS: BENZONATATE 200 MG CAPSULE PO SCH ×2 (10:43→21:17)
[2023-05-25] MEDS: MULTIVIT-MINERALS ORAL LIQUID GT SCH (10:44)
[2023-05-25] MEDS: FAMOTIDINE 20 MG/2.5 ML ORAL LIQUID PEG SCH ×2 (10:45→21:17)
[2023-05-25] MEDS: FLUoxetine HCL 20 MG/5 ML 120 BOTTLE PEG SCH (10:45)
[2023-05-25] MEDS: SODIUM CHLORIDE IVPB SCH (17:00)
[2023-05-25] MEDS: DAPTOMYCIN IVPB SCH (17:00)
[2023-05-25] MEDS: MONTELUKAST NA 10 MG TABLET PEG SCH (21:18)
[2023-05-25] MEDS: ATORVASTATIN CA 40 MG TABLET (FP) PEG SCH (21:19)
[2023-05-26] MEDS: CEFTAROLINE FOSAMIL ACETATE 600 MG in DEXTROSE 5%-WATER - 250 ML IVPB SCH ×3 (01:04→20:28)
[2023-05-26] MEDS: SUCRALFATE 1 GM TABLET (FP) PO SCH ×3 (05:50→21:19)
[2023-05-26] MEDS: METOCLOPRAMIDE HCL 10 MG TABLET (FP) PO SCH ×3 (05:50→21:18)
[2023-05-26] MEDS: LEVOTHYROXINE NA 125 MCG TABLET (FP) PEG SCH (06:05)
[2023-05-26 09:13] LABS: HEMATOCRIT 32.2 % (32.4-45.2); HEMOGLOBIN 10.2 GM/dL (10.7-15.3); MCH 30.9 pg (25.7-33.7); MCHC 31.6 g/dl (32.0-36.0); PLATELET COUNT 457 10^3/uL (134-434); RBC 3.29 M/mm3 (3.60-5.2); RDW 14.6 % (11.6-15.6); WHITE BLOOD COUNT 23.8 K/mm3 (4.0-10.0)
[2023-05-26 09:23] LABS: POTASSIUM 3.3 mmol/L (3.5-5.1)
[2023-05-26 09:28] LABS: ALBUMIN 2.6 g/dl (3.4-5.0); CALCIUM 9.2 mg/dL (8.5-10.1)
[2023-05-26 09:29] LABS: BLOOD UREA NITROGEN 30.4 mg/dL (7-18)
[2023-05-26 09:32] LABS: BILIRUBIN,TOTAL 1.1 mg/dL (0.2-1); CREATININE 0.8 mg/dL (0.55-1.3)
[2023-05-26] MEDS: AMINO ACIDS/PROTEIN HYDROLYS 30 ML LIQUID.PKT GT SCH (10:05)
[2023-05-26] MEDS: FUROSEMIDE 40 MG/4 ML INJECTABLE VIAL IVPUSH SCH (10:05)
[2023-05-26] MEDS: FAMOTIDINE 20 MG/2.5 ML ORAL LIQUID PEG SCH ×2 (10:10→21:17)
[2023-05-26] MEDS: ENOXAPARIN NA (PORCINE) 40 MG/0.4 ML DISP.SYRIN SQ SCH (10:10)
[2023-05-26] MEDS: FLUoxetine HCL 20 MG/5 ML 120 BOTTLE PEG SCH (10:11)
[2023-05-26] MEDS: BENZONATATE 100 MG CAPSULE PO SCH ×2 (10:12→21:17)
[2023-05-26] MEDS: MULTIVIT-MINERALS ORAL LIQUID GT SCH (10:15)
[2023-05-26 10:21] LABS: ANISOCYTOSIS 0; HELMET CELLS 0; HOWELL-JOLLY BODIES 0; MACROCYTOSIS 0; OVALOCYTE 0; ROULEAU 0; SICKELED CELLS 0; TARGET CELLS 0; TEAR DROP CELLS 0; TOXIC GRANULATION 0
[2023-05-26] MEDS: BACITRACIN ZINC 15 GM TUBE TOPICAL OINTMENT TP SCH (12:26)
[2023-05-26] MEDS: DAPTOMYCIN IVPB SCH (17:42)
[2023-05-26] MEDS: SODIUM CHLORIDE IVPB SCH (17:42)
[2023-05-26] MEDS: ACETAMINOPHEN 650 MG/20.3 ML ORAL SOLUTION (CUPS) PEG PRN (17:45)
[2023-05-26] MEDS: POTASSIUM CHLORIDE TABS 20 MEQ TABLET.ER (FP) PO SCH (21:16)
[2023-05-26] MEDS: ATORVASTATIN CA 40 MG TABLET (FP) PEG SCH (21:16)
[2023-05-26] MEDS: MONTELUKAST NA 10 MG TABLET PEG SCH (21:18)
[2023-05-27] MEDS: CEFTAROLINE FOSAMIL ACETATE 600 MG in DEXTROSE 5%-WATER - 250 ML IVPB SCH ×3 (01:09→17:17)
[2023-05-27] MEDS: SUCRALFATE 1 GM TABLET (FP) PO SCH (06:05)
[2023-05-27] MEDS: LEVOTHYROXINE NA 125 MCG TABLET (FP) PEG SCH (06:05)
[2023-05-27] MEDS: METOCLOPRAMIDE HCL 10 MG TABLET (FP) PO SCH ×3 (06:05→22:26)
[2023-05-27] MEDS: AMINO ACIDS/PROTEIN HYDROLYS 30 ML LIQUID.PKT GT SCH (08:28)
[2023-05-27] MEDS: POTASSIUM CHLORIDE TABS 20 MEQ TABLET.ER (FP) PO SCH ×2 (10:54→11:10)
[2023-05-27] MEDS: BACITRACIN ZINC 15 GM TUBE TOPICAL OINTMENT TP SCH (10:55)
[2023-05-27] MEDS: ENOXAPARIN NA (PORCINE) 40 MG/0.4 ML DISP.SYRIN SQ SCH (10:56)
[2023-05-27] MEDS: FUROSEMIDE 40 MG/4 ML INJECTABLE VIAL IVPUSH SCH (10:57)
[2023-05-27] MEDS: FLUoxetine HCL 20 MG/5 ML 120 BOTTLE PEG SCH (10:57)
[2023-05-27] MEDS: FAMOTIDINE 20 MG/2.5 ML ORAL LIQUID PEG SCH ×2 (10:58→22:27)
[2023-05-27] MEDS: MULTIVIT-MINERALS ORAL LIQUID GT SCH (10:58)
[2023-05-27] MEDS ORDERED: SUCRALFATE 1 GM/10 ML UNIT DOSE CUPS PO SCH (10:58)
[2023-05-27] MEDS: BENZONATATE 100 MG CAPSULE PO SCH ×2 (11:09→22:30)
[2023-05-27] MEDS: SUCRALFATE 1 GM/10 ML UNIT DOSE CUPS GT SCH ×2 (13:50→22:27)
[2023-05-27] MEDS: ACETAMINOPHEN 650 MG/20.3 ML ORAL SOLUTION (CUPS) PEG PRN (13:50)
[2023-05-27] MEDS: DAPTOMYCIN IVPB SCH (17:17)
[2023-05-27] MEDS: SODIUM CHLORIDE IVPB SCH (17:17)
[2023-05-27] MEDS: MONTELUKAST NA 10 MG TABLET PEG SCH (22:28)
[2023-05-27] MEDS: ATORVASTATIN CA 40 MG TABLET (FP) PEG SCH (22:28)
[2023-05-28] MEDS: CEFTAROLINE FOSAMIL ACETATE 600 MG in DEXTROSE 5%-WATER - 250 ML IVPB SCH ×3 (02:11→17:28)
[2023-05-28] MEDS: LEVOTHYROXINE NA 125 MCG TABLET (FP) PEG SCH (06:07)
[2023-05-28] MEDS: METOCLOPRAMIDE HCL 10 MG TABLET (FP) PO SCH ×3 (06:07→21:31)
[2023-05-28] MEDS: SUCRALFATE 1 GM/10 ML UNIT DOSE CUPS GT SCH ×3 (06:08→21:31)
[2023-05-28 08:01] LABS: HEMOGLOBIN 9.8 GM/dL (10.7-15.3); MCH 31.9 pg (25.7-33.7); MCHC 32.7 g/dl (32.0-36.0); MEAN CELL VOLUME 97.7 fl (80-96); MEAN PLT VOLUME 10.1 fl (7.5-11.1); PLATELET COUNT 450 10^3/uL (134-434); RBC 3.07 M/mm3 (3.60-5.2); WHITE BLOOD COUNT 18.3 K/mm3 (4.0-10.0)
[2023-05-28] MEDS: AMINO ACIDS/PROTEIN HYDROLYS 30 ML LIQUID.PKT GT SCH (08:01)
[2023-05-28 08:37] LABS: POTASSIUM 3.6 mmol/L (3.5-5.1)
[2023-05-28 08:43] LABS: CALCIUM 9.5 mg/dL (8.5-10.1)
[2023-05-28 08:44] LABS: ALBUMIN 2.4 g/dl (3.4-5.0); BLOOD UREA NITROGEN 27.2 mg/dL (7-18); MAGNESIUM 2.1 mg/dL (1.8-2.4)
[2023-05-28 08:47] LABS: PHOSPHOROUS 2.4 mg/dL (2.5-4.9)
[2023-05-28 08:48] LABS: BILIRUBIN,TOTAL 0.5 mg/dL (0.2-1)
[2023-05-28 08:49] LABS: TOT PROT 5.7 g/dl (6.4-8.2)
[2023-05-28] MEDS: FUROSEMIDE 40 MG/4 ML INJECTABLE VIAL IVPUSH SCH (10:17)
[2023-05-28] MEDS: MULTIVIT-MINERALS ORAL LIQUID GT SCH (10:17)
[2023-05-28] MEDS: ENOXAPARIN NA (PORCINE) 40 MG/0.4 ML DISP.SYRIN SQ SCH (10:17)
[2023-05-28] MEDS: FLUoxetine HCL 20 MG/5 ML 120 BOTTLE PEG SCH (10:18)
[2023-05-28] MEDS: FAMOTIDINE 20 MG/2.5 ML ORAL LIQUID PEG SCH ×2 (10:18→21:31)
[2023-05-28] MEDS: BENZONATATE 100 MG CAPSULE PO SCH ×2 (10:19→21:32)
[2023-05-28] MEDS: BACITRACIN ZINC 15 GM TUBE TOPICAL OINTMENT TP SCH (10:21)
[2023-05-28 11:13] LABS: ANISOCYTOSIS 1+; MACROCYTOSIS 0; ROULEAU 1+; TARGET CELLS 2+
[2023-05-28] MEDS: ACETAMINOPHEN 650 MG/20.3 ML ORAL SOLUTION (CUPS) PEG PRN ×2 (13:20→21:32)
[2023-05-28] MEDS: SODIUM CHLORIDE IVPB SCH (17:21)
[2023-05-28] MEDS: DAPTOMYCIN IVPB SCH (17:21)
[2023-05-28] MEDS: MONTELUKAST NA 10 MG TABLET PEG SCH (21:31)
[2023-05-28] MEDS: ATORVASTATIN CA 40 MG TABLET (FP) PEG SCH (21:31)
[2023-05-29] MEDS: CEFTAROLINE FOSAMIL ACETATE 600 MG in DEXTROSE 5%-WATER - 250 ML IVPB SCH ×3 (01:57→18:03)
[2023-05-29] MEDS: SUCRALFATE 1 GM/10 ML UNIT DOSE CUPS GT SCH ×3 (06:19→22:37)
[2023-05-29] MEDS: METOCLOPRAMIDE HCL 10 MG TABLET (FP) PO SCH ×3 (06:19→22:36)
[2023-05-29] MEDS: LEVOTHYROXINE NA 125 MCG TABLET (FP) PEG SCH (06:19)
[2023-05-29 09:43] LABS: BASO % 0.6 % (0-2.0); EOS % 0.7 % (0-4.5); HEMOGLOBIN 9.4 GM/dL (10.7-15.3); MCH 31.6 pg (25.7-33.7); MCHC 32.6 g/dl (32.0-36.0); MEAN CELL VOLUME 97.2 fl (80-96); MONO % 9.8 % (3.8-10.2); NEUT % 80.9 % (42.8-82.8); PLATELET COUNT 437 10^3/uL (134-434); RBC 2.98 M/mm3 (3.60-5.2); RDW 15.3 % (11.6-15.6); WHITE BLOOD COUNT 15.3 K/mm3 (4.0-10.0)
[2023-05-29] MEDS: AMINO ACIDS/PROTEIN HYDROLYS 30 ML LIQUID.PKT GT SCH (09:52)
[2023-05-29 10:10] LABS: CHLORIDE 96 mmol/L (98-107); SODIUM 135 mmol/L (136-145)
[2023-05-29 10:16] LABS: CALCIUM 8.8 mg/dL (8.5-10.1); CO2 32 mmol/L (21-32); GLUCOSE,RANDOM 73 mg/dL (74-106)
[2023-05-29 10:17] LABS: ALBUMIN 2.3 g/dl (3.4-5.0); BLOOD UREA NITROGEN 29.2 mg/dL (7-18); MAGNESIUM 2.2 mg/dL (1.8-2.4)
[2023-05-29 10:19] LABS: SGOT/AST 22 U/L (15-37); SGPT/ALT 22 U/L (13-61)
[2023-05-29 10:21] LABS: TOT PROT 5.4 g/dl (6.4-8.2)
[2023-05-29 10:22] LABS: ALK PHOS 101 U/L (45-117)
[2023-05-29 10:23] LABS: ANION GAP 7 mmol/L (4-13); POTASSIUM 2.9 mmol/L (3.5-5.1)
[2023-05-29] MEDS: BACITRACIN ZINC 15 GM TUBE TOPICAL OINTMENT TP SCH (10:52)
[2023-05-29] MEDS: FLUoxetine HCL 20 MG/5 ML 120 BOTTLE PEG SCH (10:53)
[2023-05-29] MEDS: FUROSEMIDE 40 MG/4 ML INJECTABLE VIAL IVPUSH SCH (10:53)
[2023-05-29] MEDS: MULTIVIT-MINERALS ORAL LIQUID GT SCH (10:53)
[2023-05-29] MEDS: BENZONATATE 100 MG CAPSULE PO SCH ×2 (10:54→22:38)
[2023-05-29] MEDS: FAMOTIDINE 20 MG/2.5 ML ORAL LIQUID PEG SCH ×2 (10:54→22:38)
[2023-05-29] MEDS: POTASSIUM CHLORIDE TABS 20 MEQ TABLET.ER (FP) PO SCH ×2 (10:56→13:22)
[2023-05-29] MEDS: KCL 10 MEQ IVPB 10 MEQ/100 ML INFUS.BAG IVPB SCH ×3 (10:56→14:30)
[2023-05-29] MEDS: ACETAMINOPHEN 650 MG/20.3 ML ORAL SOLUTION (CUPS) PEG PRN ×2 (11:16→17:04)
[2023-05-29] MEDS: POTASSIUM CHLORIDE ORAL LIQUID 20 MEQ/15 ML GT SCH ×2 (13:07→22:37)
[2023-05-29] MEDS: DAPTOMYCIN IVPB SCH (17:04)
[2023-05-29] MEDS: SODIUM CHLORIDE IVPB SCH (17:04)
[2023-05-29 17:32] LABS: BLOOD UREA NITROGEN 29.5 mg/dL (7-18)
[2023-05-29 17:35] LABS: CREATININE 1.1 mg/dL (0.55-1.3)
[2023-05-29] MEDS: MONTELUKAST NA 10 MG TABLET PEG SCH (22:36)
[2023-05-29] MEDS: ATORVASTATIN CA 40 MG TABLET (FP) PEG SCH (22:37)
[2023-05-30] MEDS: CEFTAROLINE FOSAMIL ACETATE 600 MG in DEXTROSE 5%-WATER - 250 ML IVPB SCH ×3 (01:55→19:07)
[2023-05-30] MEDS: METOCLOPRAMIDE HCL 10 MG TABLET (FP) PO SCH ×3 (05:29→22:24)
[2023-05-30] MEDS: SUCRALFATE 1 GM/10 ML UNIT DOSE CUPS GT SCH ×3 (05:29→22:20)
[2023-05-30] MEDS: LEVOTHYROXINE NA 125 MCG TABLET (FP) PEG SCH (06:14)
[2023-05-30 07:18] LABS: BASO % 0.9 % (0-2.0); EOS % 0.7 % (0-4.5); HEMATOCRIT 29.5 % (32.4-45.2); HEMOGLOBIN 9.6 GM/dL (10.7-15.3); LYMPH % 6.7 % (8-40); MCH 31.7 pg (25.7-33.7); MCHC 32.5 g/dl (32.0-36.0); MEAN CELL VOLUME 97.6 fl (80-96); MEAN PLT VOLUME 9.9 fl (7.5-11.1); MONO % 7.6 % (3.8-10.2); NEUT % 84.1 % (42.8-82.8); PLATELET COUNT 453 10^3/uL (134-434); RBC 3.02 M/mm3 (3.60-5.2); RDW 15.3 % (11.6-15.6)
[2023-05-30 07:54] LABS: ALBUMIN 2.4 g/dl (3.4-5.0); BLOOD UREA NITROGEN 27.2 mg/dL (7-18); MAGNESIUM 2.1 mg/dL (1.8-2.4)
[2023-05-30 07:57] LABS: PHOSPHOROUS 2.6 mg/dL (2.5-4.9)
[2023-05-30 07:58] LABS: BILIRUBIN,TOTAL 0.5 mg/dL (0.2-1); TOT PROT 5.5 g/dl (6.4-8.2)
[2023-05-30] MEDS: AMINO ACIDS/PROTEIN HYDROLYS 30 ML LIQUID.PKT GT SCH (10:02)
[2023-05-30] MEDS: BACITRACIN ZINC 15 GM TUBE TOPICAL OINTMENT TP SCH (10:02)
[2023-05-30] MEDS: FAMOTIDINE 20 MG/2.5 ML ORAL LIQUID PEG SCH ×2 (10:02→22:20)
[2023-05-30] MEDS: FLUoxetine HCL 20 MG/5 ML 120 BOTTLE PEG SCH (10:03)
[2023-05-30] MEDS: FUROSEMIDE 40 MG/4 ML INJECTABLE VIAL IVPUSH SCH (10:05)
[2023-05-30] MEDS: BENZONATATE 100 MG CAPSULE PO SCH ×3 (10:05→22:20)
[2023-05-30] MEDS: MULTIVIT-MINERALS ORAL LIQUID GT SCH (10:23)
[2023-05-30] MEDS: ACETAMINOPHEN 650 MG/20.3 ML ORAL SOLUTION (CUPS) PEG PRN ×2 (11:19→17:49)
[2023-05-30] MEDS: SODIUM CHLORIDE IVPB SCH (17:14)
[2023-05-30] MEDS: DAPTOMYCIN IVPB SCH (17:14)
[2023-05-30] MEDS: MONTELUKAST NA 10 MG TABLET PEG SCH (22:21)
[2023-05-30] MEDS: ATORVASTATIN CA 40 MG TABLET (FP) PEG SCH (22:21)
[2023-05-31] MEDS: CEFTAROLINE FOSAMIL ACETATE 600 MG in DEXTROSE 5%-WATER - 250 ML IVPB SCH ×3 (02:34→17:48)
[2023-05-31] MEDS: SUCRALFATE 1 GM/10 ML UNIT DOSE CUPS GT SCH ×3 (06:37→21:36)
[2023-05-31] MEDS: METOCLOPRAMIDE HCL 10 MG TABLET (FP) PO SCH ×3 (06:37→21:36)
[2023-05-31] MEDS: LEVOTHYROXINE NA 125 MCG TABLET (FP) PEG SCH (06:37)
[2023-05-31] MEDS: AMINO ACIDS/PROTEIN HYDROLYS 30 ML LIQUID.PKT GT SCH (09:43)
[2023-05-31] MEDS: BACITRACIN ZINC 15 GM TUBE TOPICAL OINTMENT TP SCH (09:43)
[2023-05-31] MEDS: FUROSEMIDE 40 MG/4 ML INJECTABLE VIAL IVPUSH SCH (09:44)
[2023-05-31] MEDS: MULTIVIT-MINERALS ORAL LIQUID GT SCH (09:44)
[2023-05-31] MEDS: ENOXAPARIN NA (PORCINE) 40 MG/0.4 ML DISP.SYRIN SQ SCH (09:44)
[2023-05-31] MEDS: FAMOTIDINE 20 MG/2.5 ML ORAL LIQUID PEG SCH ×2 (09:45→21:36)
[2023-05-31] MEDS: BENZONATATE 100 MG CAPSULE PO SCH ×2 (09:45→21:37)
[2023-05-31] MEDS: FLUoxetine HCL 20 MG/5 ML 120 BOTTLE PEG SCH (10:38)
[2023-05-31] MEDS: ACETAMINOPHEN 650 MG/20.3 ML ORAL SOLUTION (CUPS) PEG PRN (15:15)
[2023-05-31] MEDS: DAPTOMYCIN IVPB SCH (17:10)
[2023-05-31] MEDS: SODIUM CHLORIDE IVPB SCH (17:10)
[2023-05-31] MEDS: ATORVASTATIN CA 40 MG TABLET (FP) PEG SCH (21:36)
[2023-05-31] MEDS: MONTELUKAST NA 10 MG TABLET PEG SCH (21:36)
[2023-06-01] MEDS: CEFTAROLINE FOSAMIL ACETATE 600 MG in DEXTROSE 5%-WATER - 250 ML IVPB SCH ×3 (01:28→17:49)
[2023-06-01] MEDS: SUCRALFATE 1 GM/10 ML UNIT DOSE CUPS GT SCH ×3 (06:23→21:55)
[2023-06-01] MEDS: METOCLOPRAMIDE HCL 10 MG TABLET (FP) PO SCH ×3 (06:23→21:56)
[2023-06-01] MEDS: LEVOTHYROXINE NA 125 MCG TABLET (FP) PEG SCH (06:24)
[2023-06-01 08:23] LABS: EOS % 1.3 % (0-4.5); HEMATOCRIT 30.1 % (32.4-45.2); HEMOGLOBIN 9.7 GM/dL (10.7-15.3); LYMPH % 7.9 % (8-40); MCHC 32.2 g/dl (32.0-36.0); MEAN CELL VOLUME 99.3 fl (80-96); MEAN PLT VOLUME 9.8 fl (7.5-11.1); MONO % 5.9 % (3.8-10.2); NEUT % 83.9 % (42.8-82.8); PLATELET COUNT 416 10^3/uL (134-434); RBC 3.03 M/mm3 (3.60-5.2); RDW 15.4 % (11.6-15.6); WHITE BLOOD COUNT 13.3 K/mm3 (4.0-10.0)
[2023-06-01 08:40] LABS: POTASSIUM 3.4 mmol/L (3.5-5.1)
[2023-06-01 08:52] LABS: ALBUMIN 2.5 g/dl (3.4-5.0); CALCIUM 9.2 mg/dL (8.5-10.1)
[2023-06-01 08:53] LABS: BLOOD UREA NITROGEN 31.4 mg/dL (7-18)
[2023-06-01 08:55] LABS: CREATININE 0.9 mg/dL (0.55-1.3)
[2023-06-01 08:56] LABS: BILIRUBIN,TOTAL 0.4 mg/dL (0.2-1); TOT PROT 5.8 g/dl (6.4-8.2)
[2023-06-01] MEDS: FUROSEMIDE 40 MG/4 ML INJECTABLE VIAL IVPUSH SCH (09:08)
[2023-06-01] MEDS: ENOXAPARIN NA (PORCINE) 40 MG/0.4 ML DISP.SYRIN SQ SCH (09:08)
[2023-06-01] MEDS: MULTIVIT-MINERALS ORAL LIQUID GT SCH (09:09)
[2023-06-01] MEDS: FAMOTIDINE 20 MG/2.5 ML ORAL LIQUID PEG SCH ×2 (09:09→21:55)
[2023-06-01] MEDS: AMINO ACIDS/PROTEIN HYDROLYS 30 ML LIQUID.PKT GT SCH (09:09)
[2023-06-01] MEDS: BACITRACIN ZINC 15 GM TUBE TOPICAL OINTMENT TP SCH (09:09)
[2023-06-01] MEDS: BENZONATATE 100 MG CAPSULE PO SCH ×2 (09:12→22:00)
[2023-06-01] MEDS: ACETAMINOPHEN 650 MG/20.3 ML ORAL SOLUTION (CUPS) PEG PRN ×2 (10:07→16:57)
[2023-06-01] MEDS: FLUoxetine HCL 20 MG/5 ML 120 BOTTLE PEG SCH (10:27)
[2023-06-01] MEDS ORDERED: POTASSIUM CHLORIDE ORAL LIQUID 20 MEQ/15 ML PO ONE (10:37)
[2023-06-01] MEDS: SODIUM CHLORIDE IVPB SCH (16:57)
[2023-06-01] MEDS: DAPTOMYCIN IVPB SCH (16:57)
[2023-06-01] MEDS: ATORVASTATIN CA 40 MG TABLET (FP) PEG SCH (21:56)
[2023-06-01] MEDS: MONTELUKAST NA 10 MG TABLET PEG SCH (22:01)
[2023-06-02] MEDS: CEFTAROLINE FOSAMIL ACETATE 600 MG in DEXTROSE 5%-WATER - 250 ML IVPB SCH ×3 (02:25→17:16)
[2023-06-02] MEDS: METOCLOPRAMIDE HCL 10 MG TABLET (FP) PO SCH ×3 (05:55→21:42)
[2023-06-02] MEDS: SUCRALFATE 1 GM/10 ML UNIT DOSE CUPS GT SCH ×3 (05:56→21:41)
[2023-06-02] MEDS: LEVOTHYROXINE NA 125 MCG TABLET (FP) PEG SCH (06:04)
[2023-06-02 07:36] LABS: BASO % 1.1 % (0-2.0); EOS % 1.6 % (0-4.5); HEMATOCRIT 29.7 % (32.4-45.2); HEMOGLOBIN 9.7 GM/dL (10.7-15.3); LYMPH % 5.7 % (8-40); MCH 32.4 pg (25.7-33.7); MCHC 32.5 g/dl (32.0-36.0); MEAN CELL VOLUME 99.6 fl (80-96); MEAN PLT VOLUME 9.7 fl (7.5-11.1); MONO % 4.3 % (3.8-10.2); NEUT % 87.3 % (42.8-82.8); PLATELET COUNT 399 10^3/uL (134-434); RBC 2.98 M/mm3 (3.60-5.2); RDW 15.7 % (11.6-15.6); WHITE BLOOD COUNT 13.2 K/mm3 (4.0-10.0)
[2023-06-02 07:45] LABS: POTASSIUM 3.5 mmol/L (3.5-5.1)
[2023-06-02 07:51] LABS: BLOOD UREA NITROGEN 30.5 mg/dL (7-18)
[2023-06-02 07:54] LABS: CREATININE 0.9 mg/dL (0.55-1.3)
[2023-06-02] MEDS: ENOXAPARIN NA (PORCINE) 40 MG/0.4 ML DISP.SYRIN SQ SCH (09:31)
[2023-06-02] MEDS: AMINO ACIDS/PROTEIN HYDROLYS 30 ML LIQUID.PKT GT SCH (09:31)
[2023-06-02] MEDS: BACITRACIN ZINC 15 GM TUBE TOPICAL OINTMENT TP SCH (09:31)
[2023-06-02] MEDS: MULTIVIT-MINERALS ORAL LIQUID GT SCH (09:31)
[2023-06-02] MEDS: FUROSEMIDE 40 MG/4 ML INJECTABLE VIAL IVPUSH SCH (09:31)
[2023-06-02] MEDS: BENZONATATE 100 MG CAPSULE PO SCH ×2 (09:32→21:42)
[2023-06-02] MEDS: FLUoxetine HCL 20 MG/5 ML 120 BOTTLE PEG SCH (09:32)
[2023-06-02] MEDS: FAMOTIDINE 20 MG/2.5 ML ORAL LIQUID PEG SCH ×2 (09:32→22:36)
[2023-06-02] MEDS: ACETAMINOPHEN 650 MG/20.3 ML ORAL SOLUTION (CUPS) PEG PRN ×2 (11:13→18:18)
[2023-06-02] MEDS: IBUPROFEN 100 MG/5 ML UNIT DOSE CUPS PEG PRN ×2 (15:32→21:42)
[2023-06-02] MEDS: DAPTOMYCIN IVPB SCH (16:38)
[2023-06-02] MEDS: SODIUM CHLORIDE IVPB SCH (16:38)
[2023-06-02] MEDS: MONTELUKAST NA 10 MG TABLET PEG SCH (21:42)
[2023-06-02] MEDS: ATORVASTATIN CA 40 MG TABLET (FP) PEG SCH (21:42)
[2023-06-03] MEDS: CEFTAROLINE FOSAMIL ACETATE 600 MG in DEXTROSE 5%-WATER - 250 ML IVPB SCH ×2 (01:05→09:19)
[2023-06-03] MEDS: SUCRALFATE 1 GM/10 ML UNIT DOSE CUPS GT SCH ×3 (05:23→21:13)
[2023-06-03] MEDS: METOCLOPRAMIDE HCL 10 MG TABLET (FP) PO SCH ×3 (05:23→21:13)
[2023-06-03] MEDS: LEVOTHYROXINE NA 125 MCG TABLET (FP) PEG SCH (06:04)
[2023-06-03 08:52] LABS: HEMATOCRIT 30.7 % (32.4-45.2); MCH 32.4 pg (25.7-33.7); MCHC 32.6 g/dl (32.0-36.0); MEAN CELL VOLUME 99.2 fl (80-96); MEAN PLT VOLUME 9.7 fl (7.5-11.1); PLATELET COUNT 373 10^3/uL (134-434); RDW 16.2 % (11.6-15.6); WHITE BLOOD COUNT 10.7 K/mm3 (4.0-10.0)
[2023-06-03] MEDS: BACITRACIN ZINC 15 GM TUBE TOPICAL OINTMENT TP SCH (09:17)
[2023-06-03] MEDS: AMINO ACIDS/PROTEIN HYDROLYS 30 ML LIQUID.PKT GT SCH (09:17)
[2023-06-03] MEDS: MULTIVIT-MINERALS ORAL LIQUID GT SCH (09:18)
[2023-06-03] MEDS: ENOXAPARIN NA (PORCINE) 40 MG/0.4 ML DISP.SYRIN SQ SCH (09:18)
[2023-06-03] MEDS: FLUoxetine HCL 20 MG/5 ML 120 BOTTLE PEG SCH (09:18)
[2023-06-03] MEDS: FUROSEMIDE 40 MG/4 ML INJECTABLE VIAL IVPUSH SCH (09:18)
[2023-06-03] MEDS: FAMOTIDINE 20 MG/2.5 ML ORAL LIQUID PEG SCH ×2 (09:18→21:13)
[2023-06-03] MEDS: BENZONATATE 100 MG CAPSULE PO SCH ×2 (09:19→21:13)
[2023-06-03] MEDS: ACETAMINOPHEN 650 MG/20.3 ML ORAL SOLUTION (CUPS) PEG PRN (09:22)
[2023-06-03 09:32] LABS: POTASSIUM 3.1 mmol/L (3.5-5.1)
[2023-06-03 09:34] LABS: CALCIUM 9.2 mg/dL (8.5-10.1)
[2023-06-03 09:35] LABS: ALBUMIN 2.6 g/dl (3.4-5.0)
[2023-06-03 09:38] LABS: CREATININE 1.1 mg/dL (0.55-1.3)
[2023-06-03 09:39] LABS: BILIRUBIN,TOTAL 0.3 mg/dL (0.2-1)
[2023-06-03] MEDS: POTASSIUM CHLORIDE ORAL LIQUID 20 MEQ/15 ML PO SCH ×2 (11:46→21:10)
[2023-06-03] MEDS: IBUPROFEN 100 MG/5 ML UNIT DOSE CUPS PEG PRN (14:23)
[2023-06-03] MEDS: VANCOMYCIN/WATER FOR INJ (PEG) 1,000 MG/200 ML BAG IVPB SCH (16:52)
[2023-06-03] MEDS: morphine SULFATE 10 MG/5 ML UNIT-DOSE CUP PO PRN (16:56)
[2023-06-03] MEDS: MONTELUKAST NA 10 MG TABLET PEG SCH (21:15)
[2023-06-03] MEDS: ATORVASTATIN CA 40 MG TABLET (FP) PEG SCH (21:15)
[2023-06-04] MEDS: VANCOMYCIN/WATER FOR INJ (PEG) 1,000 MG/200 ML BAG IVPB SCH ×2 (03:40→15:18)
[2023-06-04] MEDS: SUCRALFATE 1 GM/10 ML UNIT DOSE CUPS GT SCH ×3 (06:41→22:00)
[2023-06-04] MEDS: METOCLOPRAMIDE HCL 10 MG TABLET (FP) PO SCH ×3 (06:41→22:02)
[2023-06-04] MEDS: LEVOTHYROXINE NA 125 MCG TABLET (FP) PEG SCH (06:43)
[2023-06-04 07:51] LABS: BASO % 1.3 % (0-2.0); EOS % 4.4 % (0-4.5); HEMATOCRIT 29.6 % (32.4-45.2); HEMOGLOBIN 9.6 GM/dL (10.7-15.3); LYMPH % 8.4 % (8-40); MCH 32.6 pg (25.7-33.7); MCHC 32.5 g/dl (32.0-36.0); MEAN CELL VOLUME 100.1 fl (80-96); MEAN PLT VOLUME 9.7 fl (7.5-11.1); MONO % 6.5 % (3.8-10.2); NEUT % 79.4 % (42.8-82.8); PLATELET COUNT 317 10^3/uL (134-434); RBC 2.96 M/mm3 (3.60-5.2); RDW 15.9 % (11.6-15.6); WHITE BLOOD COUNT 10.7 K/mm3 (4.0-10.0)
[2023-06-04 08:22] LABS: POTASSIUM 3.2 mmol/L (3.5-5.1)
[2023-06-04 08:29] LABS: CALCIUM 8.9 mg/dL (8.5-10.1)
[2023-06-04 08:30] LABS: BLOOD UREA NITROGEN 33.3 mg/dL (7-18); MAGNESIUM 2.2 mg/dL (1.8-2.4)
[2023-06-04 08:33] LABS: PHOSPHOROUS 2.6 mg/dL (2.5-4.9)
[2023-06-04] MEDS: AMINO ACIDS/PROTEIN HYDROLYS 30 ML LIQUID.PKT GT SCH (09:43)
[2023-06-04] MEDS: ENOXAPARIN NA (PORCINE) 40 MG/0.4 ML DISP.SYRIN SQ SCH (09:43)
[2023-06-04] MEDS: POTASSIUM CHLORIDE ORAL LIQUID 20 MEQ/15 ML PO SCH ×2 (09:43→22:00)
[2023-06-04] MEDS: BACITRACIN ZINC 15 GM TUBE TOPICAL OINTMENT TP SCH (09:43)
[2023-06-04] MEDS: MULTIVIT-MINERALS ORAL LIQUID GT SCH (09:46)
[2023-06-04] MEDS: FLUoxetine HCL 20 MG/5 ML 120 BOTTLE PEG SCH (09:47)
[2023-06-04] MEDS: BENZONATATE 100 MG CAPSULE PO SCH ×2 (09:47→22:01)
[2023-06-04] MEDS: FUROSEMIDE 40 MG/4 ML INJECTABLE VIAL IVPUSH SCH (09:49)
[2023-06-04] MEDS: ACETAMINOPHEN 650 MG/20.3 ML ORAL SOLUTION (CUPS) PEG PRN (10:09)
[2023-06-04] MEDS: morphine SULFATE 10 MG/5 ML UNIT-DOSE CUP PO PRN (10:44)
[2023-06-04] MEDS: FAMOTIDINE 20 MG/2.5 ML ORAL LIQUID PEG SCH ×2 (10:44→22:01)
[2023-06-04] MEDS: LIDOCAINE 4% PATCH TP SCH (17:40)
[2023-06-04] MEDS: MONTELUKAST NA 10 MG TABLET PEG SCH (22:00)
[2023-06-04] MEDS: ATORVASTATIN CA 40 MG TABLET (FP) PEG SCH (22:01)
[2023-06-04] MEDS: LIDOCAINE PATCH REMOVAL MC SCH (22:02)
[2023-06-05] MEDS: VANCOMYCIN/WATER FOR INJ (PEG) 1,000 MG/200 ML BAG IVPB SCH ×2 (02:37→15:31)
[2023-06-05] MEDS: SUCRALFATE 1 GM/10 ML UNIT DOSE CUPS GT SCH ×3 (05:18→21:10)
[2023-06-05] MEDS: METOCLOPRAMIDE HCL 10 MG TABLET (FP) PO SCH ×3 (05:19→21:11)
[2023-06-05] MEDS: LEVOTHYROXINE NA 125 MCG TABLET (FP) PEG SCH (06:10)
[2023-06-05 07:42] LABS: BASO % 0.6 % (0-2.0); EOS % 3.9 % (0-4.5); HEMATOCRIT 29.2 % (32.4-45.2); HEMOGLOBIN 9.5 GM/dL (10.7-15.3); LYMPH % 9.8 % (8-40); MCH 32.8 pg (25.7-33.7); MCHC 32.4 g/dl (32.0-36.0); MEAN CELL VOLUME 101.2 fl (80-96); MONO % 6.8 % (3.8-10.2); NEUT % 78.9 % (42.8-82.8); PLATELET COUNT 281 10^3/uL (134-434); RBC 2.89 M/mm3 (3.60-5.2); RDW 16.3 % (11.6-15.6); WHITE BLOOD COUNT 11.3 K/mm3 (4.0-10.0)
[2023-06-05 08:05] LABS: POTASSIUM 3.6 mmol/L (3.5-5.1)
[2023-06-05 08:08] LABS: ALBUMIN 2.4 g/dl (3.4-5.0); BLOOD UREA NITROGEN 31.7 mg/dL (7-18); CALCIUM 9.1 mg/dL (8.5-10.1); MAGNESIUM 2.1 mg/dL (1.8-2.4)
[2023-06-05 08:10] LABS: PHOSPHOROUS 2.6 mg/dL (2.5-4.9)
[2023-06-05 08:11] LABS: CREATININE 0.8 mg/dL (0.55-1.3)
[2023-06-05 08:13] LABS: BILIRUBIN,TOTAL 0.5 mg/dL (0.2-1); TOT PROT 5.7 g/dl (6.4-8.2)
[2023-06-05] MEDS ORDERED: oxyCODONE HCL 5 MG TABLET PO PRN (08:13)
[2023-06-05] MEDS: POTASSIUM CHLORIDE ORAL LIQUID 20 MEQ/15 ML PO SCH ×2 (09:18→21:11)
[2023-06-05] MEDS: FUROSEMIDE 40 MG TABLET (FP) PO SCH (09:18)
[2023-06-05] MEDS: AMINO ACIDS/PROTEIN HYDROLYS 30 ML LIQUID.PKT GT SCH (09:19)
[2023-06-05] MEDS: BENZONATATE 100 MG CAPSULE PO SCH ×2 (09:19→21:02)
[2023-06-05] MEDS: LIDOCAINE 4% PATCH TP SCH (09:19)
[2023-06-05] MEDS: FAMOTIDINE 20 MG/2.5 ML ORAL LIQUID PEG SCH ×2 (09:19→21:11)
[2023-06-05] MEDS: MULTIVIT-MINERALS ORAL LIQUID GT SCH (09:20)
[2023-06-05] MEDS: BACITRACIN ZINC 15 GM TUBE TOPICAL OINTMENT TP SCH (09:21)
[2023-06-05] MEDS: FLUoxetine HCL 20 MG/5 ML 120 BOTTLE PEG SCH (09:21)
[2023-06-05] MEDS: oxyCODONE HCL 5 MG TABLET GT PRN ×2 (13:12→17:34)
[2023-06-05] MEDS: MONTELUKAST NA 10 MG TABLET PEG SCH (21:10)
[2023-06-05] MEDS: ATORVASTATIN CA 40 MG TABLET (FP) PEG SCH (21:10)
[2023-06-05] MEDS: LIDOCAINE PATCH REMOVAL MC SCH (21:11)
[2023-06-06] MEDS: VANCOMYCIN/WATER FOR INJ (PEG) 1,000 MG/200 ML BAG IVPB SCH ×2 (02:52→15:23)
[2023-06-06] MEDS: SUCRALFATE 1 GM/10 ML UNIT DOSE CUPS GT SCH ×3 (06:10→21:10)
[2023-06-06] MEDS: METOCLOPRAMIDE HCL 10 MG TABLET (FP) PO SCH ×3 (06:10→21:09)
[2023-06-06] MEDS: LEVOTHYROXINE NA 125 MCG TABLET (FP) PEG SCH (06:10)
[2023-06-06 07:56] LABS: BASO % 0.6 % (0-2.0); EOS % 2.8 % (0-4.5); HEMATOCRIT 30.3 % (32.4-45.2); HEMOGLOBIN 9.7 GM/dL (10.7-15.3); LYMPH % 9.3 % (8-40); MCH 32.3 pg (25.7-33.7); MEAN CELL VOLUME 100.9 fl (80-96); MEAN PLT VOLUME 9.9 fl (7.5-11.1); MONO % 6.4 % (3.8-10.2); NEUT % 80.9 % (42.8-82.8); PLATELET COUNT 267 10^3/uL (134-434); RDW 16.2 % (11.6-15.6); WHITE BLOOD COUNT 10.8 K/mm3 (4.0-10.0)
[2023-06-06 08:20] LABS: POTASSIUM 3.7 mmol/L (3.5-5.1)
[2023-06-06 09:03] LABS: ALBUMIN 2.4 g/dl (3.4-5.0); BLOOD UREA NITROGEN 29.1 mg/dL (7-18); CALCIUM 9.6 mg/dL (8.5-10.1); MAGNESIUM 1.9 mg/dL (1.8-2.4)
[2023-06-06 09:06] LABS: CREATININE 0.7 mg/dL (0.55-1.3); PHOSPHOROUS 2.6 mg/dL (2.5-4.9)
[2023-06-06 09:08] LABS: BILIRUBIN,TOTAL 0.6 mg/dL (0.2-1); TOT PROT 5.7 g/dl (6.4-8.2)
[2023-06-06] MEDS: AMINO ACIDS/PROTEIN HYDROLYS 30 ML LIQUID.PKT GT SCH (09:52)
[2023-06-06] MEDS: FUROSEMIDE 40 MG TABLET (FP) PO SCH (10:05)
[2023-06-06] MEDS: MULTIVIT-MINERALS ORAL LIQUID GT SCH (10:05)
[2023-06-06] MEDS: FLUoxetine HCL 20 MG/5 ML 120 BOTTLE PEG SCH (10:06)
[2023-06-06] MEDS: FAMOTIDINE 20 MG/2.5 ML ORAL LIQUID PEG SCH ×2 (10:06→22:22)
[2023-06-06] MEDS: POTASSIUM CHLORIDE ORAL LIQUID 20 MEQ/15 ML PO SCH ×2 (10:06→21:10)
[2023-06-06] MEDS: BENZONATATE 100 MG CAPSULE PO SCH ×2 (10:07→21:10)
[2023-06-06 12:18] LABS: INR 0.93 (0.83-1.09); PROTHROMBIN TIME (PATIENT) 10.8 SEC (9.7-13.0)
[2023-06-06] MEDS: LIDOCAINE 4% PATCH TP SCH (12:27)
[2023-06-06] MEDS ORDERED: FENTANYL CITRATE/PF 50 MCG/ML VIAL ONE (14:31)
[2023-06-06] MEDS ORDERED: oxyCODONE HCL 5 MG TABLET GT PRN (18:17)
[2023-06-06] MEDS: BACITRACIN ZINC 15 GM TUBE TOPICAL OINTMENT TP SCH (19:45)
[2023-06-06] MEDS: ATORVASTATIN CA 40 MG TABLET (FP) PEG SCH (21:09)
[2023-06-06] MEDS: MONTELUKAST NA 10 MG TABLET PEG SCH (21:09)
[2023-06-06] MEDS: LIDOCAINE PATCH REMOVAL MC SCH (22:22)
[2023-06-07] MEDS: VANCOMYCIN/WATER FOR INJ (PEG) 1,000 MG/200 ML BAG IVPB SCH (04:44)
[2023-06-07] MEDS: SUCRALFATE 1 GM/10 ML UNIT DOSE CUPS GT SCH ×3 (05:32→22:18)
[2023-06-07] MEDS: METOCLOPRAMIDE HCL 10 MG TABLET (FP) PO SCH ×3 (05:32→22:18)
[2023-06-07] MEDS: LEVOTHYROXINE NA 125 MCG TABLET (FP) PEG SCH (06:16)
[2023-06-07] MEDS ORDERED: DOCUSATE SODIUM 100 MG CAPSULE (FP) PO PRN (09:47)
[2023-06-07] MEDS ORDERED: FENTANYL PATCH WASTE TD PRN (09:50)
[2023-06-07 09:51] LABS: EOS % 0.4 % (0-4.5); HEMOGLOBIN 10.1 GM/dL (10.7-15.3); MCH 31.9 pg (25.7-33.7); MCHC 31.5 g/dl (32.0-36.0); MEAN CELL VOLUME 101.3 fl (80-96); MEAN PLT VOLUME 10.6 fl (7.5-11.1); MONO % 7.3 % (3.8-10.2); NEUT % 87.3 % (42.8-82.8); PLATELET COUNT 254 10^3/uL (134-434); RBC 3.15 M/mm3 (3.60-5.2); RDW 16.9 % (11.6-15.6)
[2023-06-07] MEDS: FUROSEMIDE 40 MG TABLET (FP) PO SCH (10:50)
[2023-06-07] MEDS: BENZONATATE 100 MG CAPSULE PO SCH ×2 (10:50→22:20)
[2023-06-07] MEDS: AMINO ACIDS/PROTEIN HYDROLYS 30 ML LIQUID.PKT GT SCH (10:50)
[2023-06-07] MEDS: BACITRACIN ZINC 15 GM TUBE TOPICAL OINTMENT TP SCH (10:50)
[2023-06-07] MEDS: POTASSIUM CHLORIDE ORAL LIQUID 20 MEQ/15 ML PO SCH ×2 (10:50→22:18)
[2023-06-07] MEDS: MULTIVIT-MINERALS ORAL LIQUID GT SCH (10:51)
[2023-06-07] MEDS: FLUoxetine HCL 20 MG/5 ML 120 BOTTLE PEG SCH (10:51)
[2023-06-07 10:52] LABS: POTASSIUM 4.1 mmol/L (3.5-5.1)
[2023-06-07] MEDS: fentaNYL 12mcg/hr PATCH.TD72 TD SCH (10:52)
[2023-06-07] MEDS: FAMOTIDINE 20 MG/2.5 ML ORAL LIQUID PEG SCH ×2 (10:52→22:18)
[2023-06-07 10:57] LABS: ALBUMIN 2.4 g/dl (3.4-5.0); BLOOD UREA NITROGEN 26.7 mg/dL (7-18); CALCIUM 9.4 mg/dL (8.5-10.1)
[2023-06-07 11:00] LABS: CREATININE 0.6 mg/dL (0.55-1.3); PHOSPHOROUS 2.5 mg/dL (2.5-4.9)
[2023-06-07 11:02] LABS: BILIRUBIN,TOTAL 0.6 mg/dL (0.2-1); TOT PROT 5.9 g/dl (6.4-8.2)
[2023-06-07] MEDS: VANCOMYCIN/WATER 1250 MG 1,250 MG/250 ML BAG IVPB SCH (14:25)
[2023-06-07] MEDS: LIDOCAINE PATCH REMOVAL MC SCH (22:19)
[2023-06-07] MEDS: MONTELUKAST NA 10 MG TABLET PEG SCH (22:19)
[2023-06-07] MEDS: ATORVASTATIN CA 40 MG TABLET (FP) PEG SCH (22:19)
[2023-06-07] MEDS: ACETAMINOPHEN 650 MG/20.3 ML ORAL SOLUTION (CUPS) PEG PRN (22:24)
[2023-06-07] MEDS: oxyCODONE HCL 5 MG TABLET GT PRN (22:25)
[2023-06-08] MEDS: oxyCODONE HCL 5 MG TABLET GT PRN ×2 (06:22→11:11)
[2023-06-08] MEDS: METOCLOPRAMIDE HCL 10 MG TABLET (FP) PO SCH ×3 (06:23→21:01)
[2023-06-08] MEDS: SUCRALFATE 1 GM/10 ML UNIT DOSE CUPS GT SCH ×3 (06:23→21:01)
[2023-06-08] MEDS: ACETAMINOPHEN 650 MG/20.3 ML ORAL SOLUTION (CUPS) PEG PRN (06:24)
[2023-06-08] MEDS: LEVOTHYROXINE NA 125 MCG TABLET (FP) PEG SCH (06:25)
[2023-06-08 08:45] LABS: BASO % 0.4 % (0-2.0); EOS % 0.6 % (0-4.5); HEMATOCRIT 27.3 % (32.4-45.2); HEMOGLOBIN 8.7 GM/dL (10.7-15.3); LYMPH % 5.9 % (8-40); MCH 32.9 pg (25.7-33.7); MCHC 31.7 g/dl (32.0-36.0); MEAN CELL VOLUME 103.8 fl (80-96); MEAN PLT VOLUME 10.3 fl (7.5-11.1); NEUT % 84.1 % (42.8-82.8); PLATELET COUNT 203 10^3/uL (134-434); RBC 2.63 M/mm3 (3.60-5.2); RDW 17.2 % (11.6-15.6); WHITE BLOOD COUNT 17.3 K/mm3 (4.0-10.0)
[2023-06-08 08:55] LABS: POTASSIUM 4.3 mmol/L (3.5-5.1)
[2023-06-08 09:20] LABS: CALCIUM 9.2 mg/dL (8.5-10.1)
[2023-06-08 09:21] LABS: ALBUMIN 2.1 g/dl (3.4-5.0); BLOOD UREA NITROGEN 28.3 mg/dL (7-18); MAGNESIUM 1.8 mg/dL (1.8-2.4)
[2023-06-08 09:24] LABS: CREATININE 0.8 mg/dL (0.55-1.3); PHOSPHOROUS 2.8 mg/dL (2.5-4.9)
[2023-06-08 09:26] LABS: BILIRUBIN,TOTAL 0.6 mg/dL (0.2-1); TOT PROT 5.5 g/dl (6.4-8.2)
[2023-06-08] MEDS: AMINO ACIDS/PROTEIN HYDROLYS 30 ML LIQUID.PKT GT SCH (10:20)
[2023-06-08] MEDS: FLUoxetine HCL 20 MG/5 ML 120 BOTTLE PEG SCH (10:21)
[2023-06-08] MEDS: BACITRACIN ZINC 15 GM TUBE TOPICAL OINTMENT TP SCH (10:21)
[2023-06-08] MEDS: MULTIVIT-MINERALS ORAL LIQUID GT SCH (10:21)
[2023-06-08] MEDS: BENZONATATE 100 MG CAPSULE PO SCH ×2 (10:22→21:01)
[2023-06-08] MEDS: FAMOTIDINE 20 MG/2.5 ML ORAL LIQUID PEG SCH ×2 (10:25→21:01)
[2023-06-08] MEDS: VANCOMYCIN/WATER 1250 MG 1,250 MG/250 ML BAG IVPB SCH (14:24)
[2023-06-08] MEDS: ATORVASTATIN CA 40 MG TABLET (FP) PEG SCH (21:01)
[2023-06-08] MEDS: MONTELUKAST NA 10 MG TABLET PEG SCH (21:01)
[2023-06-08] MEDS: LIDOCAINE PATCH REMOVAL MC SCH (21:05)
[2023-06-09] MEDS: METOCLOPRAMIDE HCL 10 MG TABLET (FP) PO SCH ×3 (05:37→21:38)
[2023-06-09] MEDS: SUCRALFATE 1 GM/10 ML UNIT DOSE CUPS GT SCH ×3 (05:37→21:38)
[2023-06-09] MEDS: LEVOTHYROXINE NA 125 MCG TABLET (FP) PEG SCH (06:00)
[2023-06-09] MEDS: AMINO ACIDS/PROTEIN HYDROLYS 30 ML LIQUID.PKT GT SCH (08:52)
[2023-06-09] MEDS: BACITRACIN ZINC 15 GM TUBE TOPICAL OINTMENT TP SCH (10:52)
[2023-06-09] MEDS: FLUoxetine HCL 20 MG/5 ML 120 BOTTLE PEG SCH (10:52)
[2023-06-09] MEDS: BENZONATATE 100 MG CAPSULE PO SCH ×2 (10:53→21:40)
[2023-06-09 12:07] LABS: BASO % 0.3 % (0-2.0); EOS % 0.9 % (0-4.5); HEMATOCRIT 25.4 % (32.4-45.2); HEMOGLOBIN 8.3 GM/dL (10.7-15.3); MCH 33.3 pg (25.7-33.7); MCHC 32.7 g/dl (32.0-36.0); MEAN CELL VOLUME 101.9 fl (80-96); MEAN PLT VOLUME 10.2 fl (7.5-11.1); MONO % 9.8 % (3.8-10.2); PLATELET COUNT 223 10^3/uL (134-434); RBC 2.49 M/mm3 (3.60-5.2); RDW 16.3 % (11.6-15.6); WHITE BLOOD COUNT 13.1 K/mm3 (4.0-10.0)
[2023-06-09 12:27] LABS: POTASSIUM 3.9 mmol/L (3.5-5.1)
[2023-06-09 12:33] LABS: ALBUMIN 1.9 g/dl (3.4-5.0); BLOOD UREA NITROGEN 25.7 mg/dL (7-18)
[2023-06-09 12:37] LABS: CREATININE 0.6 mg/dL (0.55-1.3)
[2023-06-09 12:38] LABS: BILIRUBIN,TOTAL 0.4 mg/dL (0.2-1); TOT PROT 5.4 g/dl (6.4-8.2)
[2023-06-09] MEDS: ACETAMINOPHEN 650 MG/20.3 ML ORAL SOLUTION (CUPS) PEG PRN (12:51)
[2023-06-09] MEDS: FAMOTIDINE 20 MG/2.5 ML ORAL LIQUID PEG SCH ×2 (12:51→21:38)
[2023-06-09] MEDS: MULTIVIT-MINERALS ORAL LIQUID GT SCH (12:51)
[2023-06-09] MEDS: oxyCODONE HCL 5 MG TABLET GT PRN (12:52)
[2023-06-09] MEDS: LIDOCAINE 4% PATCH TP SCH (12:53)
[2023-06-09] MEDS: VANCOMYCIN/WATER 1250 MG 1,250 MG/250 ML BAG IVPB SCH (15:03)
[2023-06-09 19:40] LABS: EPI CELLS >36 /uL (0-25.1); HYALINE CASTS 1 /uL (0-3.1); URINE APPEARANCE CLEAR; URINE BACTERIA 4575 /uL (0-1359); URINE BILIRUBIN NEGATIVE (NEGATIVE); URINE COLOR YELLOW; URINE GLUCOSE (UA) NEGATIVE (NEGATIVE); URINE KETONE NEGATIVE (NEGATIVE); URINE LEUK ESTERASE TRACE (NEGATIVE); URINE NITRITE POSITIVE (NEGATIVE); URINE PROTEIN 1+ (NEGATIVE); URINE UROBILINOGEN 0.2 mg/dL (0.2-1.0); URINE WBC 21 /uL (0-25.8)
[2023-06-09 19:41] LABS: URINE RBC 23.6 /uL (0-23.9)
[2023-06-09 19:43] LABS: URINE CRYSTALS PRESENT /hpf
[2023-06-09] MEDS: MONTELUKAST NA 10 MG TABLET PEG SCH (21:39)
[2023-06-09] MEDS: ATORVASTATIN CA 40 MG TABLET (FP) PEG SCH (21:39)
[2023-06-09] MEDS: LIDOCAINE PATCH REMOVAL MC SCH (21:43)
[2023-06-10] MEDS: SUCRALFATE 1 GM/10 ML UNIT DOSE CUPS GT SCH ×3 (05:35→22:14)
[2023-06-10] MEDS: METOCLOPRAMIDE HCL 10 MG TABLET (FP) PO SCH ×3 (05:35→22:14)
[2023-06-10] MEDS: LEVOTHYROXINE NA 125 MCG TABLET (FP) PEG SCH (06:02)
[2023-06-10] MEDS: AMINO ACIDS/PROTEIN HYDROLYS 30 ML LIQUID.PKT GT SCH (09:07)
[2023-06-10] MEDS: LIDOCAINE 4% PATCH TP SCH (09:07)
[2023-06-10] MEDS: fentaNYL 12mcg/hr PATCH.TD72 TD SCH (09:09)
[2023-06-10] MEDS: FUROSEMIDE 40 MG TABLET (FP) PO SCH (09:11)
[2023-06-10] MEDS: MULTIVIT-MINERALS ORAL LIQUID GT SCH (09:12)
[2023-06-10] MEDS: FLUoxetine HCL 20 MG/5 ML 120 BOTTLE PEG SCH (09:12)
[2023-06-10 09:13] LABS: BASO % 0.4 % (0-2.0); EOS % 2.9 % (0-4.5); HEMOGLOBIN 8.6 GM/dL (10.7-15.3); LYMPH % 7.3 % (8-40); MCHC 31.7 g/dl (32.0-36.0); MEAN CELL VOLUME 101.2 fl (80-96); MEAN PLT VOLUME 10.7 fl (7.5-11.1); MONO % 9.1 % (3.8-10.2); NEUT % 80.3 % (42.8-82.8); PLATELET COUNT 248 10^3/uL (134-434); RBC 2.67 M/mm3 (3.60-5.2); RDW 16.9 % (11.6-15.6); WHITE BLOOD COUNT 9.8 K/mm3 (4.0-10.0)
[2023-06-10] MEDS: BACITRACIN ZINC 15 GM TUBE TOPICAL OINTMENT TP SCH (09:13)
[2023-06-10] MEDS: FAMOTIDINE 20 MG/2.5 ML ORAL LIQUID PEG SCH ×2 (09:13→22:14)
[2023-06-10] MEDS: BENZONATATE 100 MG CAPSULE PO SCH ×2 (09:14→22:14)
[2023-06-10 09:56] LABS: POTASSIUM 3.9 mmol/L (3.5-5.1)
[2023-06-10 10:11] LABS: BLOOD UREA NITROGEN 21.2 mg/dL (7-18); CALCIUM 9.3 mg/dL (8.5-10.1)
[2023-06-10 10:15] LABS: CREATININE 0.5 mg/dL (0.55-1.3)
[2023-06-10] MEDS: oxyCODONE HCL 5 MG TABLET GT PRN (12:54)
[2023-06-10 14:03] VITALS: RESP 18
[2023-06-10] MEDS: VANCOMYCIN/WATER 1250 MG 1,250 MG/250 ML BAG IVPB SCH (16:50)
[2023-06-10] MEDS: MONTELUKAST NA 10 MG TABLET PEG SCH (22:14)
[2023-06-10] MEDS: ATORVASTATIN CA 40 MG TABLET (FP) PEG SCH (22:14)
[2023-06-10] MEDS: LIDOCAINE PATCH REMOVAL MC SCH (22:33)
[2023-06-11] MEDS: METOCLOPRAMIDE HCL 10 MG TABLET (FP) PO SCH ×2 (05:54→15:12)
[2023-06-11] MEDS: SUCRALFATE 1 GM/10 ML UNIT DOSE CUPS GT SCH ×2 (05:54→15:12)
[2023-06-11] MEDS: LEVOTHYROXINE NA 125 MCG TABLET (FP) PEG SCH (06:04)
[2023-06-11] MEDS: AMINO ACIDS/PROTEIN HYDROLYS 30 ML LIQUID.PKT GT SCH (10:35)
[2023-06-11] MEDS: oxyCODONE HCL 5 MG TABLET GT PRN ×2 (10:35→18:47)
[2023-06-11] MEDS: FUROSEMIDE 40 MG TABLET (FP) PO SCH (10:38)
[2023-06-11] MEDS: BENZONATATE 100 MG CAPSULE PO SCH (10:38)
[2023-06-11] MEDS: MULTIVIT-MINERALS ORAL LIQUID GT SCH (10:39)
[2023-06-11] MEDS: LIDOCAINE 4% PATCH TP SCH (10:40)
[2023-06-11] MEDS: FAMOTIDINE 20 MG/2.5 ML ORAL LIQUID PEG SCH (10:41)
[2023-06-11] MEDS: BACITRACIN ZINC 15 GM TUBE TOPICAL OINTMENT TP SCH (11:05)
[2023-06-11] MEDS: FLUoxetine HCL 20 MG/5 ML 120 BOTTLE PEG SCH (11:05)
[2023-06-11] MEDS: VANCOMYCIN/WATER 1250 MG 1,250 MG/250 ML BAG IVPB SCH (15:11)
[2023-06-11 18:45] VITALS: BP 119/70; PULSE 63; TEMP 97.4
== END 2023-06-11 19:25 | DRG 871 ==
LOC: JER 11:36 → JERBED 14:56 → JICU 15:44 → J4S 05-21 21:21
PROVIDERS: ADMIT Internal Medicine Pulmonary Disease; ATTEND Internal Medicine
PROC: XW033E5 Introduction of Remdesivir Anti-infective into Peripheral Vein, Percutaneous Approach, New Technology Group 5 (ICD-10-PCS; principal; 2023-05-15)
PROC: BR29ZZZ Computerized Tomography (CT Scan) of Lumbar Spine (ICD-10-PCS; 2023-06-06)
PROC: 02HV33Z Insertion of Infusion Device into Superior Vena Cava, Percutaneous Approach (ICD-10-PCS; 2023-06-11)
PROC: B548ZZA Ultrasonography of Superior Vena Cava, Guidance (ICD-10-PCS; 2023-06-11)
DX: A41.02 Sepsis due to Methicillin resistant Staphylococcus aureus (principal); I50.33 Acute on chronic diastolic (congestive) heart failure; J12.82 Pneumonia due to coronavirus disease 2019; U07.1 COVID-19; J96.01 Acute respiratory failure with hypoxia; E78.5 Hyperlipidemia, unspecified; E03.9 Hypothyroidism, unspecified; Z86.718 Personal history of other venous thrombosis and embolism; F32.A Depression, unspecified; Z93.1 Gastrostomy status; L89.312 Pressure ulcer of right buttock, stage 2; K21.9 Gastro-esophageal reflux disease without esophagitis; E87.6 Hypokalemia; I11.0 Hypertensive heart disease with heart failure; R13.10 Dysphagia, unspecified; D64.9 Anemia, unspecified; D75.839 Thrombocytosis, unspecified; M89.9 Disorder of bone, unspecified; R65.20 Severe sepsis without septic shock
CPT/HCPCS: 0241U-QW; 20220; 36415; 36569; 36600; 71045-TC-FY; 71250-TC; 72132-TC; 72158-TC; 80048; 80053; 80076; 81003; 82550; 82553; 82803; 82962; 83605; 83615; 83735; 84100; 84443; 84484; 85025; 85027; 85379; 85610; 85651; 85730; 86140; 86705; 86850; 86900; 86901; 87040; 87086; 87186; 87340; 87350; 87635; 87899; 87902; 93005; 93010; 93306-TC; 94660; 97116-GP; 97161-GP; 99285-25; G0480; J0248; J0878; J1100; Q0162; Q9967